=== PATIENT | female | born 1950 | race Caucasian/White ===

== ENCOUNTER 2016-12-07 16:46 | Emergency (ER) | payer MEDICARE, MEDICAID ==
[2016-12-07] MEDS ORDERED: ASPIRIN 81 MG TABLET, CHEWABLE PO ONE (18:19)
[2016-12-07] MEDS ORDERED: ONDANSETRON HCL INJ/PF 4 MG/2 ML SDV IV ONE (18:28)
--- NOTE | 2016-12-07 18:30 | ER Document Report ---
ED Medical Screen (RME) - General Chief Complaint: Chest Pain Stated Complaint: CHEST PAIN Time Seen by Provider: 12/07/16 18:19 Notes: 66-year-old female with a history of one stent approximately 2 years ago presents emergency department complaining of pressure on her chest for the past week that feels like an elephant sitting on her chest. Patient states this feels different than her prior heart attack, states it feels more like a shortness of breath. States he gets worse when she lays down and is associated with a cough productive of clear sputum. Admits to history of congestive heart failure and atrial fibrillation, takes digoxin and Lasix. Patient has had increasing swelling in her bilateral lower extremities over the past several days. Does not weigh herself regularly. Pathology Teacher is Dr. Beal At [facility] cardiology TRAVEL OUTSIDE OF THE [place] IN LAST 30 DAYS: No - Related Data Allergies/Adverse Reactions: Penicillins Allergy (Severe, Verified 08/04/15 11:07) Hives Home Medications: Current Home Medications Cetirizine HCl [All Day Allergy] 10 mg PO DAILY 12/07/16 [History] Insulin Detemir [Levemir] 10 unit SQ HSP PRN 12/07/16 [History] Sacubitril/Valsartan [Entresto 24 mg-26 mg Tablet] 1 each PO BID 12/07/16 [ History] Past Medical History - Social History Frequency of alcohol use: None Drug Abuse: None - Past Medical History Cardiac Medical History: Reports: Hx Atrial Fibrillation, Hx Congestive Heart Failure, Hx Coronary Artery Disease, Hx Heart Attack - OCT 2013, Hx Hypercholesterolemia, Hx Hypertension - ON MEDS Pulmonary Medical History: Denies: Hx Asthma, Hx Bronchitis, Hx COPD, Hx Pneumonia Neurological Medical History: Denies: Hx Cerebrovascular Accident, Hx Seizures Endocrine Medical History: Reports: Hx Diabetes Mellitus Type 2 Renal/ Medical History: Reports: Hx Kidney Stones. Denies: Hx Peritoneal Dialysis GI Medical History: Denies: Hx Hepatitis, Hx Hiatal Hernia, Hx Ulcer Musculoskeltal Medical History: Denies Hx Arthritis Infectious Medical History: Denies: Hx Hepatitis Past Surgical History: Reports: Hx Cardiac Catheterization, Hx Cardiac Surgery - stent placement, Hx Cholecystectomy, Hx Coronary Stent, Hx Hysterectomy, Hx Tubal Ligation. Denies: Hx Mastectomy, Hx Open Heart Surgery, Hx Pacemaker - Immunizations Immunizations up to date: Yes Hx Diphtheria, Pertussis, Tetanus Vaccination: Yes Physical Exam - Vital signs Vitals: Temp Pulse Resp BP Pulse Ox 97.9 F 63 18 129/62 H 95 12/07/16 17:02 12/07/16 17:02 12/07/16 17:02 12/07/16 17:02 12/07/16 17:02 Interpretation: Normal - Notes Notes: Obese Lungs, no respiratory distress, crackles in the bilateral lower lung woodward Extremities, 2+ pitting edema of the bilateral lower extremities Heart, heart is irregularly irregular. Course - Vital Signs Vital signs: Temp Pulse Resp BP Pulse Ox 97.9 F 63 20 129/62 H 95 12/07/16 17:02 12/07/16 17:02 12/07/16 18:18 12/07/16 17:02 12/07/16 17:02
--- NOTE | 2016-12-07 18:53 | RADIOLOGY REPORT (SQ) ---
EXAM DESCRIPTION: CHEST SINGLE VIEW COMPLETED DATE/TIME: 12/07/2016 6:38 pm REASON FOR STUDY: chest pain COMPARISON: 12/14/2015 EXAM PARAMETERS: NUMBER OF VIEWS: One view. TECHNIQUE: Single frontal radiographic view of the chest acquired. RADIATION DOSE: NA LIMITATIONS: None. FINDINGS: LUNGS AND PLEURA: No opacities, masses or pneumothorax. No pleural effusion. MEDIASTINUM AND HILAR STRUCTURES: No masses. Contour normal. HEART AND VASCULAR STRUCTURES: Heart normal in size. Normal vasculature. BONES: No acute findings. HARDWARE: None in the chest. OTHER: No other significant finding. IMPRESSION: NO ACUTE RADIOGRAPHIC FINDING IN THE CHEST. TECHNICAL DOCUMENTATION: JOB ID: [id number]
[2016-12-07 19:27] LABS: ABSOLUTE BASOPHILS # (AUTO) 0.1 10^3/uL (0.0-0.2); ABSOLUTE EOSINOPHILS # (AUTO) 0.2 10^3/uL (0.0-0.6); ABSOLUTE LYMPHOCYTES (AUTO) 3.2 10^3/uL (0.5-4.7); ABSOLUTE MONOCYTES (AUTO) 0.7 10^3/uL (0.1-1.4); BASOPHILS % (AUTO) 0.6 % (0-2); EOSINOPHILS % (AUTO) 1.3 % (0-6); HEMATOCRIT 41.1 % (36.0-47.0); HGB HCT DIFFERENCE 0.9; LYMPHOCYTES % (AUTO) 21.1 % (13-45); MEAN CORPUSCULAR HEMOGLOBIN 30.9 pg (27.0-33.4); MEAN CORPUSCULAR HGB CONC 34.1 g/dL (32.0-36.0); MEAN CORPUSCULAR VOLUME 91 fl (80-97); MONOCYTES % (AUTO) 4.5 % (3-13); RED BLOOD COUNT 4.53 10^6/uL (3.72-5.28); RED CELL DISTRIBUTION WIDTH 14.4 % (11.5-14.0); SEGMENTED NEUTROPHILS % (AUTO) 72.5 % (42-78); WHITE BLOOD COUNT 15.1 10^3/uL (4.0-10.5)
[2016-12-07 19:29] LABS: PROTHROMBIN TIME 14.9 SEC (11.4-15.4)
[2016-12-07 19:54] LABS: ALANINE AMINOTRANSFERASE 22 U/L (9-52); ALBUMIN 3.9 g/dL (3.5-5.0); ALKALINE PHOSPHATASE 89 U/L (38-126); ANION GAP 12 (5-19); ASPARTATE AMINO TRANSFERASE 19 U/L (14-36); BILIRUBIN,DIRECT 0.5 mg/dL (0.0-0.4); BILIRUBIN,TOTAL 0.8 mg/dL (0.2-1.3); BLOOD UREA NITROGEN 16 mg/dL (7-20); CALCIUM 9.4 mg/dL (8.4-10.2); CARBON DIOXIDE 29 mmol/L (22-30); CHLORIDE 98 mmol/L (98-107); CREATINE KINASE 28 U/L (30-135); CREATININE RESULT 0.73 mg/dL (0.52-1.25); DIGOXIN 1.16 ng/mL (0.8-2.0); GLUCOSE 317 mg/dL (75-110); LIPASE 148.2 U/L (23-300); POTASSIUM 4.5 mmol/L (3.6-5.0); SODIUM 138.5 mmol/L (137-145); TOTAL PROTEIN 7.5 g/dL (6.3-8.2)
[2016-12-07 20:04] LABS: CREATINE KINASE MB 0.55 ng/mL (<4.55)
[2016-12-07 20:06] LABS: TROPONIN I < 0.012 ng/mL
[2016-12-07] MEDS ORDERED: MAG HYDROX/AL HYDROX/SIMETH SUSP 30 ML UDCUP PO ONE (20:47)
[2016-12-07] MEDS ORDERED: METOCLOPRAMIDE HCL ORAL SOLN 10 MG/10 ML UDCUP PO ONE (20:47)
[2016-12-07] MEDS ORDERED: LIDOCAINE 2% VISCOUS SOLN 20 ML UDCUP PO ONE (20:47)
[2016-12-07] MEDS ORDERED: FAMOTIDINE 20 MG TABLET PO ONE (20:47)
--- NOTE | 2016-12-07 20:52 | ER Document Report ---
ED General - General Chief Complaint: Chest Pain Stated Complaint: CHEST PAIN Time Seen by Provider: 12/07/16 18:19 Notes: Patient is a 66-year-old female with a past medical history of hypertension and known coronary artery disease who presents with epigastric abdominal discomfort that she states intermittently feels like it may be going into her left chest. She denies any radiation of the pain into the arms, jaw or back. Does describe the pain as a pressure-like sensation that has been present for approximately 12 hours. Nothing improves or worsens the pain. She has not seen her primary care doctor regarding today's concerns. She denies any associated nausea, vomiting, diaphoresis or syncope. TRAVEL OUTSIDE OF THE [place] IN LAST 30 DAYS: No - Related Data Allergies/Adverse Reactions: Penicillins Allergy (Severe, Verified 12/07/16 18:45) Hives Home Medications: Current Home Medications Cetirizine HCl [All Day Allergy] 10 mg PO DAILY 12/07/16 [History] Insulin Detemir [Levemir] 10 unit SQ HSP PRN 12/07/16 [History] Sacubitril/Valsartan [Entresto 24 mg-26 mg Tablet] 1 each PO BID 12/07/16 [ History] Past Medical History - General Information source: Patient - Social History Smoking Status: Current Every Day Smoker Frequency of alcohol use: None Drug Abuse: None Lives with: Family Family History: Reviewed & Not Pertinent - Past Medical History Cardiac Medical History: Reports: Hx Atrial Fibrillation, Hx Congestive Heart Failure, Hx Coronary Artery Disease, Hx Heart Attack - OCT 2013, Hx Hypercholesterolemia, Hx Hypertension - ON MEDS Pulmonary Medical History: Denies: Hx Asthma, Hx Bronchitis, Hx COPD, Hx Pneumonia Neurological Medical History: Denies: Hx Cerebrovascular Accident, Hx Seizures Endocrine Medical History: Reports: Hx Diabetes Mellitus Type 2 Renal/ Medical History: Reports: Hx Kidney Stones. Denies: Hx Peritoneal Dialysis GI Medical History: Denies: Hx Hepatitis, Hx Hiatal Hernia, Hx Ulcer Musculoskeltal Medical History: Denies Hx Arthritis Infectious Medical History: Denies: Hx Hepatitis Past Surgical History: Reports: Hx Cardiac Catheterization, Hx Cardiac Surgery - stent placement, Hx Cholecystectomy, Hx Coronary Stent, Hx Hysterectomy, Hx Tubal Ligation. Denies: Hx Mastectomy, Hx Open Heart Surgery, Hx Pacemaker - Immunizations Immunizations up to date: Yes Hx Diphtheria, Pertussis, Tetanus Vaccination: Yes Review of Systems - Review of Systems Notes: Constitutional: Negative for fever. HENT: Negative for sore throat. Eyes: Negative for visual changes. Cardiovascular: Negative for chest pain. Respiratory: positive for shortness of breath. Gastrointestinal: Positive for epigastric abdominal pain and nausea Genitourinary: Negative for dysuria. Musculoskeletal: Negative for back pain. Skin: Negative for rash. Neurological: Negative for headaches, weakness or numbness. 10 point ROS negative except as marked above and in HPI. Physical Exam - Vital signs Vitals: Temp Pulse Resp BP Pulse Ox 97.9 F 63 18 129/62 H 95 12/07/16 17:02 12/07/16 17:02 12/07/16 17:02 12/07/16 17:02 12/07/16 17:02 Interpretation: Normal Notes: PHYSICAL EXAMINATION: GENERAL: Well-appearing, well-nourished and in no acute distress. HEAD: Atraumatic, normocephalic. EYES: Pupils equal round and reactive to light, extraocular movements intact, sclera anicteric, conjunctiva are normal. ENT: nares patent, oropharynx clear without exudates. Moist mucous membranes. NECK: Normal range of motion, supple without lymphadenopathy LUNGS: Breath sounds clear to auscultation bilaterally and equal. No wheezes rales or rhonchi. HEART: Regular rate and rhythm without murmurs ABDOMEN: Soft, mild epigastric abdominal tenderness on palpation otherwise no focal abdominal tenderness, normoactive bowel sounds. No guarding, no rebound. No masses appreciated. EXTREMITIES: Normal range of motion, no pitting or edema. No cyanosis. NEUROLOGICAL: No focal neurological deficits. Moves all extremities spontaneously and on command. PSYCH: Normal mood, normal affect. SKIN: Warm, Dry, normal turgor, no rashes or lesions noted. Course - Re-evaluation Re-evalutation: 12/07/16 20:51 Presentation of chest pain in an otherwise well appearing patient. Examination reveals the patient's pain is actually more towards the epigastrium than over the chest wall. Low clinical suspicion for ACS given clinical history, exam, EKG without ST elevations or depressions, and negative initial troponin. PE also seems unlikely given clinical history, absence of tachycardia or dyspnea. Wells score is 0. CXR without evidence of pneumothorax or pneumonia. No widened mediastinum. Aortic dissection also seems unlikely given history, symmetric pulses, CXR, and vitals. I do not suspect an acute pancreatitis his lipase is normal. Patient has a history of a remote cholecystectomy and I do not believe acute biliary pathology as the etiology for presentation today. Will obtain a second troponin and if this remains normal plan for discharge home with close outpatient follow-up and the recommendation for a stress test within the next 72 hours. Patient is agreeable to this plan. 12/07/16 22:54 Repeat troponin remains normal. Patient remains without chest pain. At this time will discharge with return precautions and follow-up recommendations. Verbal discharge instructions given a the bedside and opportunity for questions given. Medication warnings reviewed. Patient is in agreement with this plan and has verbalized understanding of return precautions and the need for primary care follow-up in the next 24-72 hours. - Vital Signs Vital signs: Temp Pulse Resp BP Pulse Ox 97.9 F 63 23 H 156/106 H 94 12/07/16 17:02 12/07/16 17:02 12/07/16 23:01 12/07/16 23:01 12/07/16 23:01 - Laboratory Result Diagrams: 12/07/16 18:19 12/07/16 18:40 Laboratory results interpreted by me: 12/07/16 12/07/16 12/07/16 18:19 18:40 18:40 WBC 15.1 H RDW 14.4 H Absolute Neutrophils 11.0 H Glucose 317 H Direct Bilirubin 0.5 H Creatine Kinase 28 L NT-Pro-B Natriuret Pep 3430 H - Diagnostic Test Radiology reviewed: Image reviewed, Reports reviewed Radiology results interpreted by me: 12/07/16 22:55 Chest x-ray: No acute infiltrate or pneumothorax - EKG Interpretation by Me Additional EKG results interpreted by me: 12/07/16 22:55 Atrial fibrillation. Variable rate between [address] elevations or depressions. QTC is 418. Unchanged from prior EKG. Discharge - Discharge Clinical Impression: Epigastric abdominal pain Chest pain Qualifiers: Chest pain type: unspecified Qualified Code(s): R07.9 - Chest pain, unspecified Condition: Stable Disposition: HOME, SELF-CARE Additional Instructions: You were seen today for chest pain. The exact cause of your pain is unclear. However, based on your cardiac enzyme testing, chest x-ray, and EKG it does not appear that it is from an immediately life-threatening cause at this time. Although your testing here is normal is critical that you follow-up with your primary care physician for continued evaluation of this chest pain and possible stress testing. I recommended you see your physician within the next 24-48 hours to be evaluated for consideration of a stress test. Please return to emergency department immediately if you have worsening of your chest pain, shortness of breath, vomiting, become unable to exert yourself due to pain or difficulty breathing, you pass out, or have any pain that radiates into your arms, jaw, or back. Please also return if you have any additional symptoms that are concerning to you. Referrals: KACI NINA MD [Primary Care Provider] - Follow up as needed
[2016-12-07 23:05] VITALS: BP 156/106
--- NOTE | 2016-12-08 00:14 | EKG REPORT ---
SEVERITY:- ABNORMAL ECG - ATRIAL FIBRILLATION, V-RATE 73-133 LOW VOLTAGE IN FRONTAL LEADS BORDERLINE T ABNORMALITIES, INFERIOR LEADS : Confirmed by: Ventura Sotomayor 08-Dec-2016 00:13:37
== END 2016-12-07 23:20 | disposition home or self-care (01) ==
LOC: ER 16:46
DX: R10.13 Epigastric pain (principal); R07.9 Chest pain, unspecified; I48.91 Unspecified atrial fibrillation; I10 Essential (primary) hypertension; I25.10 Atherosclerotic heart disease of native coronary artery without angina pectoris; F17.200 Nicotine dependence, unspecified, uncomplicated; I25.2 Old myocardial infarction; E11.9 Type 2 diabetes mellitus without complications; R06.02 Shortness of breath; Z88.0 Allergy status to penicillin; Z95.5 Presence of coronary angioplasty implant and graft
CPT/HCPCS: 93005; 99285; 36415; 82553; 82550; 80162; 83690; 85025; 85610; 80053; 84484; 83880; 71010; 93010; A9270 ×3; J3490

== ENCOUNTER 2017-07-18 10:35 | Inpatient (IN) | payer MEDICARE, MEDICAID ==
[2017-07-18] MEDS ORDERED: ASPIRIN 81 MG TABLET, CHEWABLE PO ONE (11:12)
[2017-07-18] MEDS ORDERED: ONDANSETRON 4 MG TAB.RAPDIS PO ONE (11:16)
--- NOTE | 2017-07-18 11:17 | ER Document Report ---
ED Medical Screen (RME) - General Chief Complaint: Epigastric Pain Stated Complaint: CHEST PAIN, STOMACH PAIN Time Seen by Provider: 07/18/17 11:11 Notes: 67-year-old female, past medical history CAD, A. fib on digoxin and Eliquis, presents with multiple complaints. She is having 6 days of worsening epigastric and lower chest pain, along with right flank and lower abdominal pain. PE: Epigastric tenderness, irregular rhythm I have greeted and performed a rapid initial assessment of this patient. A comprehensive ED assessment and evaluation of the patient, analysis of test results and completion of the medical decision making process will be conducted by additional ED providers. TRAVEL OUTSIDE OF THE [place] IN LAST 30 DAYS: No - Related Data Allergies/Adverse Reactions: Penicillins Allergy (Severe, Verified 12/07/16 18:45) Hives Past Medical History - Social History Chew tobacco use (# tins/day): No Frequency of alcohol use: None Drug Abuse: None - Past Medical History Cardiac Medical History: Reports: Hx Atrial Fibrillation, Hx Congestive Heart Failure, Hx Coronary Artery Disease, Hx Heart Attack - OCT 2013, Hx Hypercholesterolemia, Hx Hypertension - ON MEDS Pulmonary Medical History: Denies: Hx Asthma, Hx Bronchitis, Hx COPD, Hx Pneumonia Neurological Medical History: Denies: Hx Cerebrovascular Accident, Hx Seizures Endocrine Medical History: Reports: Hx Diabetes Mellitus Type 2 Renal/ Medical History: Reports: Hx Kidney Stones. Denies: Hx Peritoneal Dialysis GI Medical History: Denies: Hx Hepatitis, Hx Hiatal Hernia, Hx Ulcer Musculoskeltal Medical History: Denies Hx Arthritis Infectious Medical History: Denies: Hx Hepatitis Past Surgical History: Reports: Hx Cardiac Catheterization, Hx Cardiac Surgery - stent placement, Hx Cholecystectomy, Hx Coronary Stent, Hx Hysterectomy, Hx Tubal Ligation. Denies: Hx Mastectomy, Hx Open Heart Surgery, Hx Pacemaker - Immunizations Immunizations up to date: Yes Hx Diphtheria, Pertussis, Tetanus Vaccination: Yes Physical Exam - Vital signs Vitals: Temp Pulse Resp BP Pulse Ox 98.5 F 92 20 132/73 H 96 07/18/17 10:53 07/18/17 10:53 07/18/17 10:53 07/18/17 10:53 07/18/17 10:53 Course - Vital Signs Vital signs: Temp Pulse Resp BP Pulse Ox 98.5 F 92 20 132/73 H 96 07/18/17 10:53 07/18/17 10:53 07/18/17 10:53 07/18/17 10:53 07/18/17 10:53
--- NOTE | 2017-07-18 11:49 | RADIOLOGY REPORT (SQ) ---
EXAM DESCRIPTION: CHEST SINGLE VIEW COMPLETED DATE/TIME: 07/18/2017 11:40 am REASON FOR STUDY: chest pain COMPARISON: None. EXAM PARAMETERS: NUMBER OF VIEWS: One view. TECHNIQUE: Single frontal radiographic view of the chest acquired. RADIATION DOSE: NA LIMITATIONS: None. FINDINGS: LUNGS AND PLEURA: No opacities, masses or pneumothorax. No pleural effusion. MEDIASTINUM AND HILAR STRUCTURES: No masses. Contour normal. HEART AND VASCULAR STRUCTURES: Heart normal in size. Normal vasculature. BONES: No acute findings. HARDWARE: None in the chest. OTHER: No other significant finding. IMPRESSION: NO ACUTE RADIOGRAPHIC FINDING IN THE CHEST. TECHNICAL DOCUMENTATION: JOB ID: [id number] [employer]- All Rights Reserved Reading location - IP/workstation name: [email or web address]
[2017-07-18 11:54] LABS: APPEARANCE,URINE CLOUDY; BILIRUBIN,URINE NEGATIVE (NEGATIVE); GLUCOSE, URINE >=500 mg/dL (NEGATIVE); KETONES,URINE NEGATIVE (NEGATIVE); LEUKOCYTE ESTERASE,URINE NEGATIVE (NEGATIVE); NITRITE,URINE NEGATIVE (NEGATIVE); PROTEIN,URINE >=500 mg/dL (NEGATIVE); URINE SPECIFIC GRAVITY 1.027
[2017-07-18 11:59] LABS: COLOR,URINE YELLOW
[2017-07-18 12:24] LABS: ABSOLUTE BASOPHILS # (AUTO) 0.1 10^3/uL (0.0-0.2); ABSOLUTE EOSINOPHILS # (AUTO) 0.2 10^3/uL (0.0-0.6); ABSOLUTE LYMPHOCYTES (AUTO) 2.7 10^3/uL (0.5-4.7); ABSOLUTE MONOCYTES (AUTO) 0.7 10^3/uL (0.1-1.4); ABSOLUTE NEUT (AUTO) 11.7 10^3/uL (1.7-8.2); BASOPHILS % (AUTO) 0.6 % (0-2); EOSINOPHILS % (AUTO) 1.2 % (0-6); HEMATOCRIT 42.4 % (36.0-47.0); HEMOGLOBIN 14.2 g/dL (12.0-15.5); LYMPHOCYTES % (AUTO) 17.5 % (13-45); MEAN CORPUSCULAR HEMOGLOBIN 30.4 pg (27.0-33.4); MEAN CORPUSCULAR HGB CONC 33.6 g/dL (32.0-36.0); MEAN CORPUSCULAR VOLUME 91 fl (80-97); MONOCYTES % (AUTO) 4.6 % (3-13); PLATELET COUNT 217 10^3/uL (150-450); RED BLOOD COUNT 4.69 10^6/uL (3.72-5.28); SEGMENTED NEUTROPHILS % (AUTO) 76.1 % (42-78); TOTAL CELLS COUNTED % (AUTO) 100 %; WHITE BLOOD COUNT 15.4 10^3/uL (4.0-10.5)
[2017-07-18 12:45] LABS: ALANINE AMINOTRANSFERASE 22 U/L (9-52); ALBUMIN 3.7 g/dL (3.5-5.0); ALKALINE PHOSPHATASE 88 U/L (38-126); ANION GAP 11 (5-19); ASPARTATE AMINO TRANSFERASE 15 U/L (14-36); BILIRUBIN,DIRECT 0.4 mg/dL (0.0-0.4); BILIRUBIN,TOTAL 0.7 mg/dL (0.2-1.3); BLOOD UREA NITROGEN 23 mg/dL (7-20); CALCIUM 9.7 mg/dL (8.4-10.2); CARBON DIOXIDE 32 mmol/L (22-30); CHLORIDE 100 mmol/L (98-107); CREATINE KINASE 41 U/L (30-135); DIGOXIN 0.69 ng/mL (0.8-2.0); GLUCOSE 312 mg/dL (75-110); LIPASE 1313.6 U/L (23-300); POTASSIUM 4.4 mmol/L (3.6-5.0); SODIUM 142.5 mmol/L (137-145); TOTAL PROTEIN 7.1 g/dL (6.3-8.2)
[2017-07-18] MEDS: NORMAL SALINE 1000 ML 1,000 ML IV PRN ×5 (13:02→17:56)
--- NOTE | 2017-07-18 13:26 | ER Document Report ---
ED General - General Chief Complaint: Epigastric Pain Stated Complaint: CHEST PAIN, STOMACH PAIN Time Seen by Provider: 07/18/17 11:11 Mode of Arrival: Ambulatory Information source: Patient Notes: 67-year-old female presents with complaints of epigastric abdominal pain associated with nausea vomiting pain to her flank. Patient has a history of diabetes that is poorly controlled. Patient notes she was just started on new anti-hyperglycemic medication TRAVEL OUTSIDE OF THE [place] IN LAST 30 DAYS: No - Related Data Allergies/Adverse Reactions: Penicillins Allergy (Severe, Verified 12/07/16 18:45) Hives Past Medical History - Social History Smoking Status: Current Every Day Smoker Chew tobacco use (# tins/day): No Frequency of alcohol use: None Drug Abuse: None Family History: Reviewed & Not Pertinent Patient has suicidal ideation: No Patient has homicidal ideation: No - Past Medical History Cardiac Medical History: Reports: Hx Atrial Fibrillation, Hx Congestive Heart Failure, Hx Coronary Artery Disease, Hx Heart Attack - OCT 2013, Hx Hypercholesterolemia, Hx Hypertension - ON MEDS Pulmonary Medical History: Denies: Hx Asthma, Hx Bronchitis, Hx COPD, Hx Pneumonia Neurological Medical History: Denies: Hx Cerebrovascular Accident, Hx Seizures Endocrine Medical History: Reports: Hx Diabetes Mellitus Type 2 Renal/ Medical History: Reports: Hx Kidney Stones. Denies: Hx Peritoneal Dialysis GI Medical History: Denies: Hx Hepatitis, Hx Hiatal Hernia, Hx Ulcer Musculoskeltal Medical History: Denies Hx Arthritis Infectious Medical History: Denies: Hx Hepatitis Past Surgical History: Reports: Hx Cardiac Catheterization, Hx Cardiac Surgery - stent placement, Hx Cholecystectomy, Hx Coronary Stent, Hx Hysterectomy, Hx Tubal Ligation. Denies: Hx Mastectomy, Hx Open Heart Surgery, Hx Pacemaker - Immunizations Immunizations up to date: Yes Hx Diphtheria, Pertussis, Tetanus Vaccination: Yes Physical Exam - Vital signs Vitals: Temp Pulse Resp BP Pulse Ox 98.5 F 92 20 132/73 H 96 07/18/17 10:53 07/18/17 10:53 07/18/17 10:53 07/18/17 10:53 07/18/17 10:53 Course - Re-evaluation Re-evalutation: 07/18/17 14:47 Patient's lab work and imaging is most consistent with acute pancreatitis, patient was given IV fluids, patient denies a history of alcohol abuse, gallbladder did not appear to be the source of the patient's presentation. Therefore I do believe the patient would benefit from IV fluids and admission - Vital Signs Vital signs: Temp Pulse Resp BP Pulse Ox 98.5 F 92 20 132/73 H 96 07/18/17 10:53 07/18/17 10:53 07/18/17 10:53 07/18/17 10:53 07/18/17 10:53 - Laboratory Result Diagrams: 07/18/17 11:58 07/18/17 11:58 Laboratory results interpreted by me: 07/18/17 07/18/17 07/18/17 11:18 11:58 11:58 WBC 15.4 H RDW 15.0 H Absolute Neutrophils 11.7 H Carbon Dioxide 32 H BUN 23 H Glucose 312 H Lipase 1313.6 H Urine Protein >=500 H Urine Glucose (UA) >=500 H Urine Blood MODERATE H Urine Urobilinogen 2.0 H Digoxin 0.69 L - Diagnostic Test Radiology reviewed: Image reviewed - CT abdomen pelvis note irritation around the pancreatic head, Reports reviewed Discharge - Discharge Clinical Impression: Diabetes mellitus type 1 Qualifiers: Diabetes mellitus complication status: with unspecified complications Qualified Code(s): E10.8 - Type 1 diabetes mellitus with unspecified complications Pancreatitis Qualifiers: Chronicity: acute Pancreatitis type: other Acute pancreatitis complication: unspecified Qualified Code(s): K85.80 - Other acute pancreatitis without necrosis or infection Condition: Stable Disposition: ADMITTED INPATIENT Admitting Provider: Hospitalist Unit Admitted: Telemetry Referrals: KACI NINA MD [Primary Care Provider] - Follow up as needed
--- NOTE | 2017-07-18 13:29 | EKG REPORT ---
SEVERITY:- ABNORMAL ECG - ATRIAL FIBRILLATION, V-RATE 70-105 NONSPECIFIC T ABNORMALITIES, DIFFUSE LEADS : Confirmed by: Samuel Fox MD 18-Jul-2017 13:29:02
--- NOTE | 2017-07-18 14:28 | RADIOLOGY REPORT (SQ) ---
EXAM DESCRIPTION: CT ABD/PELVIS WITH IV ONLY COMPLETED DATE/TIME: 07/18/2017 2:12 pm REASON FOR STUDY: epigastric, generalized abd pain COMPARISON: 05/23/2015 TECHNIQUE: CT scan of the abdomen and pelvis performed using helical scanning technique with dynamic intravenous contrast injection. No oral contrast. Images reviewed with lung, soft tissue, and bone windows. Reconstructed coronal and sagittal MPR images reviewed. Delayed images for evaluation of the urinary system also acquired. All images stored on PACS. All CT scanners at this facility use dose modulation, iterative reconstruction, and/or weight based d osing when appropriate to reduce radiation dose to as low as reasonably achievable (ALARA). [facility]: Dose Right [facility]: CareDose [facility]: Dose Right [facility]: Teradose 4D [facility]: Perfect Escapes CONTRAST TYPE AND DOSE: contrast/concentration: Isovue 370.00 mg/ml; Total Contrast Delivered: 93.0 ml; Total Saline Delivered: 71.0 ml RENAL FUNCTION: BUN 23 creatinine 0.9 RADIATION DOSE: CT Rad equipment meets quality standard of care and radiation dose reduction techniq ues were employed. CTDIvol: 13.3 - 17.5 mGy. DLP: 1652 mGy-cm.. LIMITATIONS: None. FINDINGS: LOWER CHEST: No acute findings. LIVER: Fatty change. Sub capsular nodularity. Normal size. No masses. No dilated ducts. SPLEEN: Normal size. No focal lesions. PANCREAS: There is subtle stranding of the peripancreatic fat. No evidence of pancreatic mass or pse udocyst. GALLBLADDER: Surgically absent. ADRENAL GLANDS: No significant masses or asymmetry. RIGHT KIDNEY AND URETER: No solid masses. 8 mm stone lower pole. No hydronephrosis or hydroureter . LEFT KIDNEY AND URETER: Stable cysts. No solid masses. No significant calcifications. No hydrone phrosis or hydroureter. AORTA AND VESSELS: No aneurysm. RETROPERITONEUM: No retroperitoneal adenopathy, hemorrhage or masses. BOWEL AND PERITONEAL CAVITY: No masses or inflammatory changes. No free fluid or peritoneal masses. APPENDIX: Normal. PELVIS: No mass. No free fluid. Normal bladder. ABDOMINAL WALL: No masses. No hernias. BONES: No significant or acute findings. OTHER: No other significant finding. IMPRESSION: 1. Subtle inflammatory changes surrounding the pancreatic head possibly due to pancreatitis. Correla tion with serum chemistries is recommended. 2. Nonobstructing stone right kidney. TECHNICAL DOCUMENTATION: JOB ID: [id number] Quality ID # [id number]: Final reports with documentation of one or more dose reduction techniques (e.g., Au tomated exposure control, adjustment of the mA and/or kV according to patient size, use of iterative reconstruction technique) 2010 [employer]- All Rights Reserved Reading location - IP/workstation name: [email or web address] [id number]
[2017-07-18] MEDS ORDERED: DEXTROSE 40% GEL 15 GM TUBE PO PRN ×2 (15:17)
[2017-07-18] MEDS ORDERED: DEXTROSE 50%-WATER 25 GM/50 ML DISP.SYRIN IV PRN ×2 (15:17)
[2017-07-18] MEDS ORDERED: GLUCAGON,HUMAN RECOMB 1 MG INJ IM PRN (15:17)
[2017-07-18] MEDS ORDERED: ONDANSETRON HCL INJ/PF 4 MG/2 ML SDV IV PRN (15:24)
[2017-07-18] MEDS ORDERED: METOPROLOL TARTRATE PF/INJ 5 MG/5 ML SDV IV ONE (16:00)
--- NOTE | 2017-07-18 16:37 | PDOC H&P ---
History of Present Illness Admission Date/PCP: 07/18/17 15:10 KACI NINA MD Patient complains of: Abdominal pain. History of Present Illness: CHRISTINA VIVEROS is a 67 year old female with diabetes that has been poorly controlled. She recently came across some orange [employer] and ate them until she became sick. Pain has not resolved, it is on her left flank, and has been associated with nausea and vomiting. She denies any fevers or chills. Denies diarrhea. Denies alcohol use. She smokes every day. She denies any weight loss or night sweats. Past Medical History Cardiac Medical History: Reports: Atrial Fibrillation, Congestive Heart Failure , Coronary Artery Disease, Myocardial Infarction - OCT 2013, Hyperlipidema, Hypertension - ON MEDS, Other - Cardiomyopathy with an ejection fraction of about 25% by echo in 2016 Pulmonary Medical History: Denies: Asthma, Bronchitis, Chronic Obstructive Pulmonary Disease (COPD), Pneumonia Neurological Medical History: Denies: Seizures Endocrine Medical History: Reports: Diabetes Mellitus Type 2 GI Medical History: Denies: Hepatitis, Hiatal Hernia Musculoskeltal Medical History: Denies: Arthritis Hematology: Denies: Anemia, Sickle Cell Disease Past Surgical History Past Surgical History: Reports: Cardiac Catheterization, Cholecystectomy, Coronary Stent, Hysterectomy, Tubal Ligation Denies: Amputation, Mastectomy, Pacemaker Social History Information Source: Patient, [facility] Records Smoking Status: Current Every Day Smoker Frequency of Alcohol Use: None Hx Recreational Drug Use: No Drugs: None Hx Prescription Drug Abuse: No - Advance Directive Resuscitation Status: Full Code Family History Family History: Reviewed & Not Pertinent, CAD - Both parents of complications of coronary artery disease with CHF Parental Family History Reviewed: Yes Children Family History Reviewed: Yes Sibling(s) Family History Reviewed.: Yes Medication/Allergy Home Medications: Digoxin [Lanoxin 0.25 mg Tablet] 0.25 mg PO DAILY 07/07/11 Aspirin [Aspirin EC] 81 mg PO DAILY 01/20/15 Nitroglycerin [Nitrostat 0.4 mg (1/150 Gr) Tabs 25/Bottle] 1 tab SL Q5MP PRN 02/22 Apixaban [Eliquis 5 mg Tablet] 5 mg PO BID 03/22/15 Furosemide [Lasix 40 mg Tablet] 40 mg PO QAM #30 tablet 12/15/15 Sacubitril/Valsartan [Entresto 24 mg-26 mg Tablet] 1 each PO BID 12/07/16 Metoprolol Succinate [Toprol XL 100 mg Tablet] 100 mg PO DAILY 07/18/17 Potassium Chloride 20 meq PO DAILY MDD take with lasix 07/18/17 Allergies/Adverse Reactions: Penicillins Allergy (Severe, Verified 12/07/16 18:45) Hives Review of Systems All systems: reviewed and no additional remarkable complaints except as stated Physical Exam Vital Signs: Temp Pulse Resp BP Pulse Ox 98.5 F 92 18 137/77 H 97 07/18/17 10:53 07/18/17 10:53 07/18/17 15:01 07/18/17 15:01 07/18/17 15:01 General appearance: PRESENT: no acute distress, obese Respiratory exam: PRESENT: clear to auscultation candice Cardiovascular exam: PRESENT: RRR GI/Abdominal exam: PRESENT: soft, tenderness - Very umbilical Neurological exam: PRESENT: alert Psychiatric exam: PRESENT: appropriate affect Skin exam: PRESENT: warm Results Impressions: Chest X-Ray 07/18/17 11:12 IMPRESSION: NO ACUTE RADIOGRAPHIC FINDING IN THE CHEST. Abdomen/Pelvis CT 07/18/17 12:40 IMPRESSION: 1. Subtle inflammatory changes surrounding the pancreatic head possibly due to pancreatitis. Correlation with serum chemistries is recommended. 2. Nonobstructing stone right kidney. Assessment & Plan - Diagnosis (1) Pancreatitis Qualifiers: Chronicity: acute Pancreatitis type: other Acute pancreatitis complication: unspecified Qualified Code(s): K85.80 - Other acute pancreatitis without necrosis or infection Is this a current diagnosis for this admission?: Yes Plan: CT scan is not very dramatic. I will keep her n.p.o., keep her hydrated, covered her medications as I can over to IV. Provide pain medication and supportive care. 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
[2017-07-18] MEDS: HYDROMORPHONE HCL INJ/PF 2 MG/ML AMPULE IV PRN ×2 (17:00→22:46)
[2017-07-18] MEDS: INSULIN LISPRO 100 UNIT/ML 3 ML VIAL SUBCUT PRN (17:57)
[2017-07-18] MEDS: ENALAPRILAT DIHYDRATE INJ/PF 1.25 MG/1 ML SDV IV SCH (18:42)
[2017-07-18] MEDS: ENOXAPARIN SODIUM INJ 100 MG/1 ML DISP.SYRIN SUBCUT SCH (22:45)
[2017-07-18] MEDS: FAMOTIDINE INJ/PF 20 MG/2 ML SDV IV SCH (22:46)
[2017-07-19] MEDS: METOPROLOL TARTRATE PF/INJ 5 MG/5 ML SDV IV SCH ×5 (00:21→21:50)
[2017-07-19] MEDS: ENALAPRILAT DIHYDRATE INJ/PF 1.25 MG/1 ML SDV IV SCH ×2 (00:30→06:00)
[2017-07-19] MEDS: HYDROMORPHONE HCL INJ/PF 2 MG/ML AMPULE IV PRN ×2 (06:04→16:21)
[2017-07-19 06:24] LABS: APPEARANCE,URINE SLIGHTLY-CLOUDY; BILIRUBIN,URINE NEGATIVE (NEGATIVE); COLOR,URINE YELLOW; GLUCOSE, URINE 50 mg/dL (NEGATIVE); KETONES,URINE NEGATIVE (NEGATIVE); LEUKOCYTE ESTERASE,URINE NEGATIVE (NEGATIVE); NITRITE,URINE NEGATIVE (NEGATIVE); PROTEIN,URINE 100 mg/dL (NEGATIVE); URINE SPECIFIC GRAVITY 1.039
[2017-07-19 06:57] LABS: HEMATOCRIT 36.6 % (36.0-47.0); MEAN CORPUSCULAR HEMOGLOBIN 30.4 pg (27.0-33.4); MEAN CORPUSCULAR HGB CONC 33.2 g/dL (32.0-36.0); MEAN CORPUSCULAR VOLUME 92 fl (80-97); PLATELET COUNT 172 10^3/uL (150-450); RED BLOOD COUNT 3.98 10^6/uL (3.72-5.28)
[2017-07-19 07:05] LABS: HEMOGLOBIN 12.1 g/dL (12.0-15.5)
[2017-07-19 07:16] LABS: ALANINE AMINOTRANSFERASE 25 U/L (9-52); ALBUMIN 2.8 g/dL (3.5-5.0); ALKALINE PHOSPHATASE 67 U/L (38-126); ANION GAP 7 (5-19); ASPARTATE AMINO TRANSFERASE 13 U/L (14-36); BILIRUBIN,DIRECT 0.3 mg/dL (0.0-0.4); BILIRUBIN,TOTAL 0.3 mg/dL (0.2-1.3); BLOOD UREA NITROGEN 15 mg/dL (7-20); CARBON DIOXIDE 27 mmol/L (22-30); CHLORIDE 110 mmol/L (98-107); GLUCOSE 122 mg/dL (75-110); PHOSPHORUS 3.4 mg/dL (2.5-4.5); POTASSIUM 3.8 mmol/L (3.6-5.0); SODIUM 143.7 mmol/L (137-145); TOTAL PROTEIN 5.7 g/dL (6.3-8.2)
[2017-07-19] MEDS: ENOXAPARIN SODIUM INJ 100 MG/1 ML DISP.SYRIN SUBCUT SCH ×2 (10:01→21:50)
[2017-07-19] MEDS: FAMOTIDINE INJ/PF 20 MG/2 ML SDV IV SCH ×2 (10:02→21:50)
[2017-07-19] MEDS: DIGOXIN INJ 0.5 MG/2 ML AMPULE IV SCH (10:07)
[2017-07-19] MEDS: NORMAL SALINE 1000 ML 1,000 ML IV PRN ×2 (10:12→18:20)
--- NOTE | 2017-07-19 12:40 | PDOC PROGRESS REPORT ---
Subjective Progress Note for:: 07/19/17 Subjective:: Pain improved from yesterday though still present. Denies nausea and vomiting Reason For Visit: PANCREATITIS,DM II,AFIB Physical Exam Vital Signs: Temp Pulse Resp BP Pulse Ox 98.8 F 81 16 127/68 H 96 07/19/17 11:58 07/19/17 11:58 07/19/17 11:58 07/19/17 11:58 07/19/17 11:58 Intake & Output 07/18/17 07/19/17 07/20/17 05:59 05:59 05:59 Intake Total 1685 Output Total 400 300 Balance 1285 -300 Weight 194 lb 3.636 oz General appearance: PRESENT: no acute distress, obese Respiratory exam: PRESENT: clear to auscultation candice Cardiovascular exam: PRESENT: RRR GI/Abdominal exam: PRESENT: soft, tenderness - Mild mid abdomen Neurological exam: PRESENT: alert Psychiatric exam: PRESENT: appropriate affect Skin exam: PRESENT: warm Results Laboratory Results: 07/19/17 05:15 07/19/17 05:15 07/19/17 07/19/17 07/19/17 05:15 05:15 06:05 WBC 14.0 H RBC 3.98 Hgb 12.1 D Hct 36.6 MCV 92 MCH 30.4 MCHC 33.2 RDW 15.0 H Plt Count 172 Sodium 143.7 Potassium 3.8 Chloride 110 H Carbon Dioxide 27 Anion Gap 7 BUN 15 Creatinine 0.77 Est GFR ( Amer) > 60 Est GFR (Non-Af Amer) > 60 Glucose 122 H Calcium 8.0 L Phosphorus 3.4 Magnesium 1.7 Total Bilirubin 0.3 AST 13 L ALT 25 Alkaline Phosphatase 67 Total Protein 5.7 L Albumin 2.8 L Lipase 702.0 H Urine Color YELLOW Urine Appearance SLIGHTLY-CLOUDY Urine pH 5.0 Ur Specific [place] 1.039 Urine Protein 100 H Urine Glucose (UA) 50 H Urine Ketones NEGATIVE Urine Blood SMALL H Urine Nitrite NEGATIVE Ur Leukocyte Esterase NEGATIVE Urine WBC (Auto) 2 Urine RBC (Auto) 2 07/18/17 15:55 Troponin I < 0.012 Impressions: Chest X-Ray 07/18/17 11:12 IMPRESSION: NO ACUTE RADIOGRAPHIC FINDING IN THE CHEST. Abdomen/Pelvis CT 07/18/17 12:40 IMPRESSION: 1. Subtle inflammatory changes surrounding the pancreatic head possibly due to pancreatitis. Correlation with serum chemistries is recommended. 2. Nonobstructing stone right kidney. Assessment & Plan - Diagnosis (1) Pancreatitis Qualifiers: Chronicity: acute Pancreatitis type: other Acute pancreatitis complication: unspecified Qualified Code(s): K85.80 - Other acute pancreatitis without necrosis or infection Is this a current diagnosis for this admission?: Yes Plan: CT scan is not very dramatic. I will keep her n.p.o., keep her hydrated, covered her medications as I can over to IV. Provide pain medication and supportive care. (2) DM hyperosmolarity type II, uncontrolled Qualifiers: Diabetes mellitus chcf insulin use: without keno terminal operator use Diabetes mellitus complication detail: without coma Qualified Code(s): E11.00 - Type 2 diabetes mellitus with hyperosmolarity without nonketotic hyperglycemic- hyperosmolar coma ([facility]) Is this a current diagnosis for this admission?: Yes Plan: Hemoglobin A1c 11.9. Well-controlled on sliding scale. Continue. (3) [facility] current use of anticoagulant therapy Is this a current diagnosis for this admission?: Yes Plan: Continue therapeutic dose Lovenox (4) Chronic a-fib Is this a current diagnosis for this admission?: Yes Plan: I will hold her Vasotec so we can give her Lopressor (5) Cardiomyopathy Qualifiers: Cardiomyopathy type: ischemic Qualified Code(s): I25.5 - Ischemic cardiomyopathy Is this a current diagnosis for this admission?: Yes Plan: LVEF roughly 25%. Vasotec IV
[2017-07-20] MEDS: HYDROMORPHONE HCL INJ/PF 2 MG/ML AMPULE IV PRN (00:34)
[2017-07-20] MEDS: NORMAL SALINE 1000 ML 1,000 ML IV PRN (03:15)
[2017-07-20] MEDS: METOPROLOL TARTRATE PF/INJ 5 MG/5 ML SDV IV SCH ×2 (03:28→08:44)
[2017-07-20 05:14] LABS: ABSOLUTE BASOPHILS # (AUTO) 0.1 10^3/uL (0.0-0.2); ABSOLUTE EOSINOPHILS # (AUTO) 0.2 10^3/uL (0.0-0.6); ABSOLUTE LYMPHOCYTES (AUTO) 2.3 10^3/uL (0.5-4.7); ABSOLUTE MONOCYTES (AUTO) 0.6 10^3/uL (0.1-1.4); ABSOLUTE NEUT (AUTO) 8.2 10^3/uL (1.7-8.2); EOSINOPHILS % (AUTO) 1.3 % (0-6); HEMATOCRIT 35.6 % (36.0-47.0); HEMOGLOBIN 11.8 g/dL (12.0-15.5); LYMPHOCYTES % (AUTO) 20.6 % (13-45); MEAN CORPUSCULAR HEMOGLOBIN 30.5 pg (27.0-33.4); MEAN CORPUSCULAR HGB CONC 33.1 g/dL (32.0-36.0); MEAN CORPUSCULAR VOLUME 92 fl (80-97); MONOCYTES % (AUTO) 5.2 % (3-13); PLATELET COUNT 151 10^3/uL (150-450); RED BLOOD COUNT 3.86 10^6/uL (3.72-5.28); RED CELL DISTRIBUTION WIDTH 14.5 % (11.5-14.0); SEGMENTED NEUTROPHILS % (AUTO) 71.9 % (42-78); TOTAL CELLS COUNTED % (AUTO) 100 %; WHITE BLOOD COUNT 11.4 10^3/uL (4.0-10.5)
[2017-07-20 05:42] LABS: ALBUMIN 2.7 g/dL (3.5-5.0); ANION GAP 8 (5-19); BLOOD UREA NITROGEN 13 mg/dL (7-20); CARBON DIOXIDE 24 mmol/L (22-30); CHLORIDE 113 mmol/L (98-107); GLUCOSE 99 mg/dL (75-110); IRON 37.8 ug/dL (37-170); LIPASE 275.9 U/L (23-300); SODIUM 144.7 mmol/L (137-145)
[2017-07-20] MEDS ORDERED: FUROSEMIDE INJ/PF 40 MG/4 ML SDV IV ONE (09:00)
[2017-07-20] MEDS ORDERED: ACETAMINOPHEN 325 MG TABLET ONE (09:15)
[2017-07-20] MEDS: FAMOTIDINE INJ/PF 20 MG/2 ML SDV IV SCH (09:53)
[2017-07-20] MEDS: ENOXAPARIN SODIUM INJ 100 MG/1 ML DISP.SYRIN SUBCUT SCH (09:53)
[2017-07-20] MEDS: DIGOXIN INJ 0.5 MG/2 ML AMPULE IV SCH (09:54)
--- NOTE | 2017-07-20 12:05 | PDOC PROGRESS REPORT ---
Subjective Progress Note for:: 07/20/17 Subjective:: Abdominal pain is mostly resolved. Denies nausea and vomiting. She would like to try something to eat Reason For Visit: PANCREATITIS,DM II,AFIB Physical Exam Vital Signs: Temp Pulse Resp BP Pulse Ox 98.3 F 85 18 135/68 H 96 07/20/17 07:00 07/20/17 07:00 07/20/17 07:00 07/20/17 07:00 07/20/17 07:00 Intake & Output 07/19/17 07/20/17 07/21/17 05:59 05:59 05:59 Intake Total 1685 1542 1472 Output Total 400 1130 Balance 6686 429 6427 Weight 194 lb 3.636 oz 199 lb 4.766 oz General appearance: PRESENT: no acute distress Respiratory exam: PRESENT: clear to auscultation candice Cardiovascular exam: PRESENT: RRR GI/Abdominal exam: PRESENT: soft Extremities exam: PRESENT: +1 edema - preTibial Neurological exam: PRESENT: alert Psychiatric exam: PRESENT: appropriate affect Skin exam: PRESENT: warm Results Laboratory Results: 07/20/17 04:15 07/20/17 04:15 07/20/17 07/20/17 07/20/17 04:15 04:15 04:15 WBC 11.4 H RBC 3.86 Hgb 11.8 L Hct 35.6 L MCV 92 MCH 30.5 MCHC 33.1 RDW 14.5 H Plt Count 151 Seg Neutrophils % 71.9 Lymphocytes % 20.6 Monocytes % 5.2 Eosinophils % 1.3 Basophils % 1.0 Absolute Neutrophils 8.2 Absolute Lymphocytes 2.3 Absolute Monocytes 0.6 Absolute Eosinophils 0.2 Absolute Basophils 0.1 Sodium 144.7 Potassium 4.0 Chloride 113 H Carbon Dioxide 24 Anion Gap 8 BUN 13 Creatinine 0.77 Est GFR ( Amer) > 60 Est GFR (Non-Af Amer) > 60 Glucose 99 Calcium 8.0 L Phosphorus 3.0 Magnesium 1.8 Iron 37.8 Albumin 2.7 L Lipase 275.9 TSH 0.70 07/18/17 07/20/17 15:55 04:15 Troponin I < 0.012 NT-Pro-B Natriuret Pep 4400 H Impressions: Chest X-Ray 07/18/17 11:12 IMPRESSION: NO ACUTE RADIOGRAPHIC FINDING IN THE CHEST. Abdomen/Pelvis CT 07/18/17 12:40 IMPRESSION: 1. Subtle inflammatory changes surrounding the pancreatic head possibly due to pancreatitis. Correlation with serum chemistries is recommended. 2. Nonobstructing stone right kidney. Assessment & Plan - Diagnosis (1) Pancreatitis Qualifiers: Chronicity: acute Pancreatitis type: other Acute pancreatitis complication: unspecified Qualified Code(s): K85.80 - Other acute pancreatitis without necrosis or infection Is this a current diagnosis for this admission?: Yes Plan: Start advancing her diet, restart her home meds (2) DM hyperosmolarity type II, uncontrolled Qualifiers: Diabetes mellitus skilled nursing insulin use: without skilled nursing use Diabetes mellitus complication detail: without coma Qualified Code(s): E11.00 - Type 2 diabetes mellitus with hyperosmolarity without nonketotic hyperglycemic- hyperosmolar coma ([facility]) Is this a current diagnosis for this admission?: Yes Plan: Continue her sliding scale. I note that she does not have any diabetic medications listed on her home meds, though she states she was just started on Amaryl. She does not know the dose. I will start her on 4 mg daily and monitor. 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 Resume home meds
[2017-07-20] MEDS: INSULIN LISPRO 100 UNIT/ML 3 ML VIAL SUBCUT PRN ×2 (12:08→17:41)
[2017-07-20] MEDS ORDERED: GLIMEPIRIDE 4 MG TABLET PO ONE (13:00)
[2017-07-20] MEDS: APIXABAN 5 MG TABLET PO SCH (17:38)
[2017-07-20] MEDS: SACUBITRIL/VALSARTAN 24 MG/26 MG TABLET PO SCH (17:38)
[2017-07-21] MEDS: ACETAMINOPHEN 325 MG TABLET PO PRN ×2 (03:38→21:46)
[2017-07-21] MEDS: SACUBITRIL/VALSARTAN 24 MG/26 MG TABLET PO SCH ×2 (06:31→17:49)
[2017-07-21] MEDS: FUROSEMIDE 40 MG TABLET PO SCH (07:25)
[2017-07-21] MEDS: ASPIRIN 81 MG TABLET, ENT COATED PO SCH (09:03)
[2017-07-21] MEDS: GLIMEPIRIDE 4 MG TABLET PO SCH (09:03)
[2017-07-21] MEDS: POTASSIUM CHLORIDE 10 MEQ TABLET.SA PO SCH (09:03)
[2017-07-21] MEDS: DIGOXIN 0.25 MG TABLET PO SCH (09:03)
[2017-07-21] MEDS: METOPROLOL SUCCINATE 50 MG TAB.SR.24H PO SCH (09:04)
[2017-07-21] MEDS: APIXABAN 5 MG TABLET PO SCH ×2 (09:06→17:49)
--- NOTE | 2017-07-21 13:27 | PDOC PROGRESS REPORT ---
Subjective Progress Note for:: 07/21/17 Subjective:: Still having a little left-sided abdominal pain when she eats. Reason For Visit: PANCREATITIS,DM II,AFIB Physical Exam Vital Signs: Temp Pulse Resp BP Pulse Ox 98.1 F 81 18 141/71 H 97 07/21/17 11:52 07/21/17 11:52 07/21/17 11:52 07/21/17 11:52 07/21/17 11:52 Intake & Output 07/20/17 07/21/17 07/22/17 05:59 05:59 05:59 Intake Total 1542 2985 466 Output Total 1130 700 Balance 412 2285 466 Weight 199 lb 4.766 oz 208 lb 12.444 oz General appearance: PRESENT: no acute distress Respiratory exam: PRESENT: clear to auscultation candice Cardiovascular exam: PRESENT: RRR GI/Abdominal exam: PRESENT: soft, tenderness - Mild left mid Extremities exam: ABSENT: +1 edema Musculoskeletal exam: PRESENT: normal inspection Neurological exam: PRESENT: alert Psychiatric exam: PRESENT: appropriate affect Skin exam: PRESENT: warm Results Laboratory Results: 07/20/17 04:15 07/20/17 04:15 07/18/17 07/20/17 15:55 04:15 Troponin I < 0.012 NT-Pro-B Natriuret Pep 4400 H Impressions: Chest X-Ray 07/18/17 11:12 IMPRESSION: NO ACUTE RADIOGRAPHIC FINDING IN THE CHEST. Abdomen/Pelvis CT 07/18/17 12:40 IMPRESSION: 1. Subtle inflammatory changes surrounding the pancreatic head possibly due to pancreatitis. Correlation with serum chemistries is recommended. 2. Nonobstructing stone right kidney. Assessment & Plan - Diagnosis (1) Pancreatitis Qualifiers: Chronicity: acute Pancreatitis type: other Acute pancreatitis complication: unspecified Qualified Code(s): K85.80 - Other acute pancreatitis without necrosis or infection Is this a current diagnosis for this admission?: Yes Plan: I would like to see her tolerating a regular diabetic diet prior to discharge. I will hold her another day (2) DM hyperosmolarity type II, uncontrolled Qualifiers: Diabetes mellitus prison insulin use: without prison use Diabetes mellitus complication detail: without coma Qualified Code(s): E11.00 - Type 2 diabetes mellitus with hyperosmolarity without nonketotic hyperglycemic- hyperosmolar coma ([facility]) Is this a current diagnosis for this admission?: Yes Plan: Continue her sliding scale. Control seems to be greatly improved on Amaryl. 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 Home meds
[2017-07-21] MEDS: INSULIN LISPRO 100 UNIT/ML 3 ML VIAL SUBCUT PRN (22:02)
[2017-07-22] MEDS: SACUBITRIL/VALSARTAN 24 MG/26 MG TABLET PO SCH (06:46)
[2017-07-22 07:38] LABS: HEMATOCRIT 38.5 % (36.0-47.0); HEMOGLOBIN 12.8 g/dL (12.0-15.5); MEAN CORPUSCULAR HEMOGLOBIN 30.2 pg (27.0-33.4); MEAN CORPUSCULAR HGB CONC 33.2 g/dL (32.0-36.0); MEAN CORPUSCULAR VOLUME 91 fl (80-97); PLATELET COUNT 196 10^3/uL (150-450); RED BLOOD COUNT 4.23 10^6/uL (3.72-5.28); RED CELL DISTRIBUTION WIDTH 15.1 % (11.5-14.0); WHITE BLOOD COUNT 12.5 10^3/uL (4.0-10.5)
[2017-07-22] MEDS: FUROSEMIDE 40 MG TABLET PO SCH (07:54)
[2017-07-22 07:56] LABS: ALBUMIN 3.1 g/dL (3.5-5.0); ANION GAP 9 (5-19); BLOOD UREA NITROGEN 16 mg/dL (7-20); CALCIUM 9.3 mg/dL (8.4-10.2); CARBON DIOXIDE 31 mmol/L (22-30); CHLORIDE 105 mmol/L (98-107); GLUCOSE 132 mg/dL (75-110); LIPASE 320.5 U/L (23-300); PHOSPHORUS 2.9 mg/dL (2.5-4.5); POTASSIUM 3.9 mmol/L (3.6-5.0); SODIUM 145.4 mmol/L (137-145)
[2017-07-22] MEDS: GLIMEPIRIDE 4 MG TABLET PO SCH (08:02)
[2017-07-22 08:16] VITALS: BP 131/59
[2017-07-22] MEDS: METOPROLOL SUCCINATE 50 MG TAB.SR.24H PO SCH (09:21)
[2017-07-22] MEDS: POTASSIUM CHLORIDE 10 MEQ TABLET.SA PO SCH (09:22)
[2017-07-22] MEDS: ASPIRIN 81 MG TABLET, ENT COATED PO SCH (09:23)
[2017-07-22] MEDS: APIXABAN 5 MG TABLET PO SCH (09:23)
[2017-07-22] MEDS: DIGOXIN 0.25 MG TABLET PO SCH (09:23)
--- NOTE | 2017-07-22 15:26 | PDOC DISCHARGE SUMMARY ---
General - Admit/Disc Date/PCP Admission Date/Primary Care Provider: 07/18/17 15:10 KACI NINA MD Discharge Date: 07/22/17 - Discharge Diagnosis (1) Pancreatitis Is this a current diagnosis for this admission?: Yes Summary: Presumably due to very poorly controlled diabetes. But on bowel rest and it resolved rapidly. Now tolerating a diabetic diet (2) DM hyperosmolarity type II, uncontrolled Is this a current diagnosis for this admission?: Yes Summary: Initially managed with sliding scale insulin, she has been changed over to Amaryl which appears to be working well for, and so I will discharge her with a prescription. 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 status she was put on therapeutic dose Lovenox, when her diet was restarted she was put back on her Xarelto. (4) Chronic a-fib Is this a current diagnosis for this admission?: Yes Summary: Managed with IV medications until her home medications could be restarted (5) Cardiomyopathy Is this a current diagnosis for this admission?: Yes Summary: Managed with IV medications until her home medications could be restarted - Additional Information Resuscitation Status: Full Code Discharge Diet: Diabetic Discharge Activity: Activity As Tolerated Prescriptions: Glimepiride [Amaryl 4 mg Tablet] 4 mg PO DAILY #30 tablet Home Medications: Digoxin [Lanoxin 0.25 mg Tablet] 0.25 mg PO DAILY 07/07/11 Aspirin [Aspirin EC] 81 mg PO DAILY 01/20/15 Nitroglycerin [Nitrostat 0.4 mg (1/150 Gr) Tabs 25/Bottle] 1 tab SL Q5MP PRN 02/22 Apixaban [Eliquis 5 mg Tablet] 5 mg PO BID 03/22/15 Furosemide [Lasix 40 mg Tablet] 40 mg PO QAM #30 tablet 12/15/15 Sacubitril/Valsartan [Entresto 24 mg-26 mg Tablet] 1 each PO BID 12/07/16 Metoprolol Succinate [Toprol XL 100 mg Tablet] 100 mg PO DAILY 07/18/17 Potassium Chloride 20 meq PO DAILY MDD take with lasix 07/18/17 Glimepiride [Amaryl 4 mg Tablet] 4 mg PO DAILY #30 tablet 07/22/17 History of Present Illness Patient complains of: Abdominal pain History of Present Illness: CHRISTINA VIVEROS is a 67 year old female with diabetes that has been poorly controlled. She recently came across some orange twizzlers and ate them until she became sick. Pain has not resolved, it is on her left flank, and has been associated with nausea and vomiting. She denies any fevers or chills. Denies diarrhea. Denies alcohol use. She smokes every day. She denies any weight loss or night sweats. Her lipase on presentation was 1313 Hospital Course Hospital Course: She was kept n.p.o., medications were converted to IV as possible, pain medication and antiemetics were provided as needed, she was covered with sliding scale insulin. When her abdominal pain resolved restarted her on clear liquid diet and that is been advanced now to a full diabetic diet. Her home medications have been restarted. She reports that she was supposed to start on Amaryl prior to admission but had not started taking it, so I started it here in the hospital. That appears to have worked well so I will discharge her with a prescription for it. Physical Exam Vital Signs: Temp Pulse Resp BP Pulse Ox 97.6 F 60 18 131/59 H 99 07/22/17 10:59 07/22/17 10:59 07/22/17 10:59 07/22/17 10:59 07/22/17 10:59 Intake & Output 07/21/17 07/22/17 07/23/17 05:59 05:59 05:59 Intake Total 2985 1323 440 Output Total 700 Balance 2285 1323 440 Weight 208 lb 12.444 oz General appearance: PRESENT: no acute distress, cooperative, obese Respiratory exam: PRESENT: clear to auscultation candice Cardiovascular exam: PRESENT: RRR GI/Abdominal exam: PRESENT: soft. ABSENT: tenderness Extremities exam: ABSENT: pedal edema Musculoskeletal exam: PRESENT: normal inspection Neurological exam: PRESENT: alert Psychiatric exam: PRESENT: appropriate affect Skin exam: PRESENT: dry, warm Results Laboratory Results: 07/22/17 07:23 07/22/17 07:23 07/22/17 07/22/17 07:23 07:23 WBC 12.5 H RBC 4.23 Hgb 12.8 Hct 38.5 MCV 91 MCH 30.2 MCHC 33.2 RDW 15.1 H Plt Count 196 Sodium 145.4 H Potassium 3.9 Chloride 105 Carbon Dioxide 31 H Anion Gap 9 BUN 16 Creatinine 0.80 Est GFR ( Amer) > 60 Est GFR (Non-Af Amer) > 60 Glucose 132 H Calcium 9.3 Phosphorus 2.9 Magnesium 1.9 Albumin 3.1 L Lipase 320.5 H 07/18/17 07/20/17 15:55 04:15 Troponin I < 0.012 NT-Pro-B Natriuret Pep 4400 H Impressions: Chest X-Ray 07/18/17 11:12 IMPRESSION: NO ACUTE RADIOGRAPHIC FINDING IN THE CHEST. Abdomen/Pelvis CT 07/18/17 12:40 IMPRESSION: 1. Subtle inflammatory changes surrounding the pancreatic head possibly due to pancreatitis. Correlation with serum chemistries is recommended. 2. Nonobstructing stone right kidney. Qualifiers - * PATIENT BEING DISCHARGED WITH ANY OF THE FOLLOWING DIAGNOSIS: No
== END 2017-07-22 11:20 | disposition home or self-care (01) | DRG 438 ==
LOC: ER 10:35 → EH 15:10 → 4N 16:46
PROVIDERS: ADMIT Internal Medicine; ATTEND Internal Medicine
DX: K85.80 Other acute pancreatitis without necrosis or infection (principal); E11.00 Type 2 diabetes mellitus with hyperosmolarity without nonketotic hyperglycemic-hyperosmolar coma (NKHHC); I42.9 Cardiomyopathy, unspecified; E11.65 Type 2 diabetes mellitus with hyperglycemia; F17.200 Nicotine dependence, unspecified, uncomplicated; I25.10 Atherosclerotic heart disease of native coronary artery without angina pectoris; I11.0 Hypertensive heart disease with heart failure; I25.5 Ischemic cardiomyopathy; I50.9 Heart failure, unspecified; E78.5 Hyperlipidemia, unspecified; I48.2 Chronic atrial fibrillation; E66.9 Obesity, unspecified; Z79.01 Long term (current) use of anticoagulants; Z79.82 Long term (current) use of aspirin; Z79.899 Other long term (current) drug therapy; Z79.84 Long term (current) use of oral hypoglycemic drugs; Z95.5 Presence of coronary angioplasty implant and graft; Z90.49 Acquired absence of other specified parts of digestive tract; Z98.51 Tubal ligation status; Z82.49 Family history of ischemic heart disease and other diseases of the circulatory system; Z88.0 Allergy status to penicillin
CPT/HCPCS: 36415; 71045; 74177; 80053; 80069; 80162; 81001; 82550; 82962; 83036; 83540; 83690; 83735; 83880; 84100; 84443; 84484; 85025; 85027; 93005; 93010; 96360; 99285; J1160; J1170; J1650; J1815; J1940; J2405; J3490; J7030; S0028; S0119

== ENCOUNTER 2017-09-05 18:27 | Emergency (ER) | payer MEDICARE, MEDICAID ==
[2017-09-05] MEDS ORDERED: DICYCLOMINE HCL 20 MG TABLET PO ONE (18:55)
[2017-09-05] MEDS ORDERED: ONDANSETRON 4 MG TAB.RAPDIS PO ONE (18:55)
--- NOTE | 2017-09-05 18:57 | ER Document Report ---
ED Medical Screen (RME) - General Chief Complaint: Chest Pain > 30 Stated Complaint: CHEAST/UPPER ABDOMINAL PAIN Time Seen by Provider: 09/05/17 18:51 Notes: RAPID MEDICAL EVALUATION DISCLOSURE I have seen this patient as part of a Rapid Medical Evaluation and, if applicable, placed any initially appropriate orders. The patient will be seen and fully evaluated, including a full history and physical exam, by a provider ( in Main ED or Fast Track) when a room becomes available. 67-year-old female here with complaints of epigastric abdominal pain and midsternal chest pressure (elephant sitting on me) as well as shortness of breath and nausea ongoing for the past 7 days. Symptoms not worse with exertion. They are worse with eating certain foods such as pizza. She thinks she may be having another episode of pancreatitis since she has had this in the past. EXAM CTAB RRR Moderate epigastric TTP TRAVEL OUTSIDE OF THE [place] IN LAST 30 DAYS: Yes - Related Data Allergies/Adverse Reactions: Penicillins Allergy (Severe, Verified 07/18/17 17:34) Hives Past Medical History - Past Medical History Cardiac Medical History: Reports: Hx Atrial Fibrillation, Hx Congestive Heart Failure, Hx Coronary Artery Disease, Hx Heart Attack - OCT 2013, Hx Hypercholesterolemia, Hx Hypertension - ON MEDS Pulmonary Medical History: Denies: Hx Asthma, Hx Bronchitis, Hx COPD, Hx Pneumonia Neurological Medical History: Denies: Hx Cerebrovascular Accident, Hx Seizures Endocrine Medical History: Reports: Hx Diabetes Mellitus Type 2 Renal/ Medical History: Reports: Hx Kidney Stones. Denies: Hx Peritoneal Dialysis GI Medical History: Denies: Hx Hepatitis, Hx Hiatal Hernia, Hx Ulcer Musculoskeltal Medical History: Denies Hx Arthritis Infectious Medical History: Denies: Hx Hepatitis Past Surgical History: Reports: Hx Cardiac Catheterization, Hx Cardiac Surgery - stent placement, Hx Cholecystectomy, Hx Coronary Stent, Hx Hysterectomy, Hx Tubal Ligation. Denies: Hx Mastectomy, Hx Open Heart Surgery, Hx Pacemaker - Immunizations Immunizations up to date: Yes Hx Diphtheria, Pertussis, Tetanus Vaccination: Yes History of Influenza Vaccine for 12/2016 - 05/2017 Season: No Physical Exam - Vital signs Vitals: Temp Pulse Resp BP Pulse Ox 97.5 F 73 16 118/67 95 09/05/17 18:48 09/05/17 18:48 09/05/17 18:48 09/05/17 18:48 09/05/17 18:48 Course - Vital Signs Vital signs: Temp Pulse Resp BP Pulse Ox 97.5 F 73 16 118/67 95 09/05/17 18:48 09/05/17 18:48 09/05/17 18:48 09/05/17 18:48 09/05/17 18:48 Doctor's Discharge - Discharge Referrals: KACI NINA MD [Primary Care Provider] - Follow up as needed
[2017-09-05 19:29] LABS: ABSOLUTE BASOPHILS # (AUTO) 0.1 10^3/uL (0.0-0.2); ABSOLUTE EOSINOPHILS # (AUTO) 0.3 10^3/uL (0.0-0.6); ABSOLUTE LYMPHOCYTES (AUTO) 2.9 10^3/uL (0.5-4.7); ABSOLUTE MONOCYTES (AUTO) 0.7 10^3/uL (0.1-1.4); ABSOLUTE NEUT (AUTO) 11.8 10^3/uL (1.7-8.2); BASOPHILS % (AUTO) 0.9 % (0-2); EOSINOPHILS % (AUTO) 2.1 % (0-6); HEMATOCRIT 38.5 % (36.0-47.0); HEMOGLOBIN 13.2 g/dL (12.0-15.5); LYMPHOCYTES % (AUTO) 18.4 % (13-45); MEAN CORPUSCULAR HEMOGLOBIN 31.1 pg (27.0-33.4); MEAN CORPUSCULAR HGB CONC 34.2 g/dL (32.0-36.0); MEAN CORPUSCULAR VOLUME 91 fl (80-97); MONOCYTES % (AUTO) 4.2 % (3-13); PLATELET COUNT 225 10^3/uL (150-450); RED BLOOD COUNT 4.24 10^6/uL (3.72-5.28); RED CELL DISTRIBUTION WIDTH 14.5 % (11.5-14.0); SEGMENTED NEUTROPHILS % (AUTO) 74.4 % (42-78); TOTAL CELLS COUNTED % (AUTO) 100 %; WHITE BLOOD COUNT 15.8 10^3/uL (4.0-10.5)
[2017-09-05 19:35] LABS: APPEARANCE,URINE CLEAR; BILIRUBIN,URINE NEGATIVE (NEGATIVE); COLOR,URINE YELLOW; GLUCOSE, URINE NEGATIVE (NEGATIVE); KETONES,URINE NEGATIVE (NEGATIVE); LEUKOCYTE ESTERASE,URINE NEGATIVE (NEGATIVE); NITRITE,URINE NEGATIVE (NEGATIVE); PROTEIN,URINE 30 mg/dL (NEGATIVE); URINE SPECIFIC GRAVITY 1.009; UROBILINOGEN,URINE NEGATIVE mg/dL (<2.0)
[2017-09-05 19:53] LABS: ALANINE AMINOTRANSFERASE 23 U/L (9-52); ALBUMIN 3.7 g/dL (3.5-5.0); ALKALINE PHOSPHATASE 72 U/L (38-126); ANION GAP 9 (5-19); ASPARTATE AMINO TRANSFERASE 17 U/L (14-36); BILIRUBIN,DIRECT 0.3 mg/dL (0.0-0.4); BILIRUBIN,TOTAL 0.6 mg/dL (0.2-1.3); BLOOD UREA NITROGEN 24 mg/dL (7-20); CALCIUM 9.2 mg/dL (8.4-10.2); CARBON DIOXIDE 31 mmol/L (22-30); CHLORIDE 101 mmol/L (98-107); GLUCOSE 225 mg/dL (75-110); LIPASE 461.3 U/L (23-300); POTASSIUM 4.2 mmol/L (3.6-5.0); SODIUM 141.3 mmol/L (137-145); TOTAL PROTEIN 7.3 g/dL (6.3-8.2)
[2017-09-05] MEDS ORDERED: FENTANYL CITRATE INJ/PF 100 MCG/2 ML AMPUL IV ONE (21:22)
[2017-09-05] MEDS ORDERED: ONDANSETRON HCL INJ/PF 4 MG/2 ML SDV IV ONE (21:22)
[2017-09-05] MEDS ORDERED: NORMAL SALINE 1000 ML 1,000 ML IV PRN (21:24)
--- NOTE | 2017-09-06 00:51 | RADIOLOGY REPORT (SQ) ---
EXAM DESCRIPTION: CT ABDOMEN PELVIS WITH IV CONTRAST COMPLETED DATE/TME: 09/06/2017 00:00 CLINICAL HISTORY: Pancreatitis COMPARISON: 07/18/2017 TECHNIQUE: CT of the abdomen and pelvis performed following IV administration of 94 mL of Isovue-370. Delayed images obtained. DLP: 1859.72 mGycm FINDINGS: Lung Bases: The visualized lung bases are clear. Bones: No destructive bone lesions identified. Abdomen: Liver: The liver has normal size and density. No intrahepatic mass or biliary dilatation. Gallbladder: Prior cholecystectomy. Spleen, Pancreas, and Adrenal Glands: The spleen and adrenal glands are unremarkable. No definite peripancreatic inflammatory change. No peripancreatic fluid collection. Kidneys: 0.9 cm calculus in the right kidney has migrated to the right UPJ but is still not producing obstruction or hydronephrosis at this time. Bosniak class I left renal cysts are stable. Vasculature: Aortoiliac atherosclerosis. IVC is unremarkable. The portal vein is patent. The proximal visceral and renal arteries are patent. Stomach: The stomach and duodenum have normal course. Other: No free intraperitoneal air. No free fluid or lymphadenopathy. Pelvis: Bladder: Urinary bladder is unremarkable. Bowel: No dilated loops of large or small bowel. Scattered diverticula of the colon. No pericolic inflammatory change. Appendix: Normal appendix. Pelvis: Prior hysterectomy. IMPRESSION: 1. No evidence of acute pancreatitis by CT criteria. 2. The 0.9 cm calculus in the right renal collecting system has migrated to the right UPJ however there is no evidence of obstruction or hydronephrosis at this time. This exam was performed according to our departmental dose-optimization program, which includes automated exposure control, adjustment of the mA and/or kV according to patient size and/or use of iterative reconstruction technique.
--- NOTE | 2017-09-06 01:29 | ER Document Report ---
ED General - General Chief Complaint: Chest Pain > 30 Stated Complaint: CHEST/UPPER ABDOMINAL PAIN Time Seen by Provider: 09/05/17 18:51 Mode of Arrival: Ambulatory Notes: Chief complaint: abdominal pain: History of complain:( obtained from----patient) 67 years old female presents today with left upper quadrant abdominal pain, with a history of pancreatitis. She claims that this is due to pancreatitis. Pain is radiating to the back. Associated with nausea no vomiting. Denies any diarrhea or constipation. Denies any dysuria frequency or hematuria. Onset: As above Duration: Just prior to arrival Severity: Moderate to severe Quality: Sharp Context: Possible pancreatitis Exacerbating factor and relieving factors: None obesity REVIEW OF SYSTEMS: CONSTITUTIONAL : Denies fever, chills, or sweats. Denies recent illness. EENT: Denies eye, ear, throat, or mouth pain or symptoms. Denies nasal or sinus congestion or discharge. Denies throat, tongue, or mouth swelling or difficulty swallowing. CARDIOVASCULAR: Denies chest pain. Denies palpitations or racing or irregular heart beat. Denies ankle edema. RESPIRATORY: Denies cough, cold, or chest congestion. Denies shortness of breath, difficulty breathing, or wheezing. GASTROINTESTINAL: Denies distention. Denies nausea, vomiting, or diarrhea. Denies blood in vomitus, stools, or per rectum. Denies black, tarry stools. Denies constipation. GENITOURINARY: Denies difficulty urinating, painful urination, burning, frequency, blood in urine, or discharge. FEMALE GENITOURINARY: Denies vaginal bleeding, heavy or abnormal periods, irregular periods. Denies vaginal discharge or odor. MUSCULOSKELETAL: Denies back or neck pain or stiffness. Denies joint pain or swelling. SKIN: Denies rash, lesions or sores. HEMATOLOGIC : Denies easy bruising or bleeding. LYMPHATIC: Denies swollen, enlarged glands. NEUROLOGICAL: Denies confusion or altered mental status. Denies passing out or loss of consciousness. Denies dizziness or lightheadedness. Denies headache. Denies weakness or paralysis or loss of use of either side. Denies problems with gait or speech. Denies sensory loss, numbness, or tingling. Denies seizures. PSYCHIATRIC: Denies anxiety or stress. Denies depression, suicidal ideation, or homicidal ideation. ALL OTHER SYSTEMS REVIEWED AND NEGATIVE. PHYSICAL EXAMINATION: GENERAL: Well-appearing, well-nourished and in no acute distress. HEAD: Atraumatic, normocephalic. EYES: Pupils equal round and reactive to light, extraocular movements intact, conjunctiva are normal. ENT: Nares patent, oropharynx clear without exudates. Moist mucous membranes. NECK: Normal range of motion, supple without lymphadenopathy LUNGS: Breath sounds clear to auscultation bilaterally and equal. No wheezes rales or rhonchi. HEART: Regular rate and rhythm without murmurs ABDOMEN: Soft, tender over the mid abdominal region, nondistended abdomen. No guarding, no rebound. No masses appreciated. Female : deferred Musculoskeletal: Normal range of motion, no pitting or edema. No cyanosis. NEUROLOGICAL: Cranial nerves grossly intact. Normal speech, normal gait. Normal sensory, motor exams PSYCH: Normal mood, normal affect. SKIN: Warm, Dry, normal turgor, no rashes or lesions noted. Dictation was performed using [employer] voice recognition software TRAVEL OUTSIDE OF THE [place] IN LAST 30 DAYS: Yes - HPI Patient complains to provider of: Dictated - Related Data Allergies/Adverse Reactions: Penicillins Allergy (Severe, Verified 07/18/17 17:34) Hives Past Medical History - Social History Smoking Status: Current Every Day Smoker Cigarette use (# per day): No Chew tobacco use (# tins/day): No Smoking Education Provided: No Frequency of alcohol use: Rare Drug Abuse: None Lives with: Family Family History: Reviewed & Not Pertinent, CAD - Both parents of complications of coronary artery disease with CHF Patient has suicidal ideation: No Patient has homicidal ideation: No - Past Medical History Cardiac Medical History: Reports: Hx Atrial Fibrillation, Hx Congestive Heart Failure, Hx Coronary Artery Disease, Hx Heart Attack - OCT 2013, Hx Hypercholesterolemia, Hx Hypertension - ON MEDS Pulmonary Medical History: Denies: Hx Asthma, Hx Bronchitis, Hx COPD, Hx Pneumonia Neurological Medical History: Denies: Hx Cerebrovascular Accident, Hx Seizures Endocrine Medical History: Reports: Hx Diabetes Mellitus Type 2 Renal/ Medical History: Reports: Hx Kidney Stones. Denies: Hx Peritoneal Dialysis GI Medical History: Denies: Hx Hepatitis, Hx Hiatal Hernia, Hx Ulcer Musculoskeltal Medical History: Denies Hx Arthritis Infectious Medical History: Denies: Hx Hepatitis Past Surgical History: Reports: Hx Cardiac Catheterization, Hx Cardiac Surgery - stent placement, Hx Cholecystectomy, Hx Coronary Stent, Hx Hysterectomy, Hx Tubal Ligation. Denies: Hx Mastectomy, Hx Open Heart Surgery, Hx Pacemaker - Immunizations Immunizations up to date: Yes Hx Diphtheria, Pertussis, Tetanus Vaccination: Yes Review of Systems - Review of Systems Notes: Dictated Physical Exam - Vital signs Vitals: Temp Pulse Resp BP Pulse Ox 97.5 F 73 16 118/67 95 09/05/17 18:48 09/05/17 18:48 09/05/17 18:48 09/05/17 18:48 09/05/17 18:48 - Notes Notes: AccordingDictated Course - Re-evaluation Re-evalutation: 09/06/17 01:28 Patient was given fentanyl, which relieved the pain - Vital Signs Vital signs: Temp Pulse Resp BP Pulse Ox 97.5 F 73 19 120/73 98 09/05/17 18:48 09/05/17 18:48 09/05/17 20:22 09/05/17 20:22 09/05/17 20:22 - Laboratory Result Diagrams: 09/05/17 19:15 09/05/17 19:15 Laboratory results interpreted by me: 09/05/17 09/05/17 09/05/17 19:15 19:15 19:15 WBC 15.8 H RDW 14.5 H Absolute Neutrophils 11.8 H Carbon Dioxide 31 H BUN 24 H Est GFR (Non-Af Amer) 57 L Glucose 225 H Lipase 461.3 H Urine Protein 30 H Urine Blood MODERATE H - Diagnostic Test Radiology reviewed: Reports reviewed - CT of the abdomen reported by radiologist as no acute pancreatitis but incidental finding of right ureteric stone at the UV junction nonobstructing. Discharge - Discharge Clinical Impression: Ureteric stone Abdominal pain Qualifiers: Abdominal location: periumbilical Qualified Code(s): R10.33 - Periumbilical pain Condition: Fair Disposition: HOME, SELF-CARE Instructions: Abdominal Pain ([facility]) Prescriptions: Hydrocodone/Acetaminophen [[place] 5-325 mg Tablet] 1 tab PO TID #14 tablet Referrals: KACI NINA MD [Primary Care Provider] - Follow up as needed
[2017-09-06 02:18] VITALS: BP 121/67
--- NOTE | 2017-09-07 00:20 | EKG REPORT ---
SEVERITY:- ABNORMAL ECG - ATRIAL FIBRILLATION, V-RATE 73-107 BORDERLINE T ABNORMALITIES, INFERIOR LEADS : Confirmed by: Iveth Aguirre MD 07-Sep-2017 00:19:35
== END 2017-09-06 02:22 | disposition home or self-care (01) ==
LOC: ER 18:27
DX: N20.1 Calculus of ureter (principal); R10.33 Periumbilical pain; R10.12 Left upper quadrant pain; R11.0 Nausea; F17.200 Nicotine dependence, unspecified, uncomplicated; I25.10 Atherosclerotic heart disease of native coronary artery without angina pectoris; I10 Essential (primary) hypertension; E11.9 Type 2 diabetes mellitus without complications; Z88.0 Allergy status to penicillin; Z87.19 Personal history of other diseases of the digestive system; Z95.5 Presence of coronary angioplasty implant and graft
CPT/HCPCS: 93005; 99284; 96374; 36415; 83690; 85025; 80053; 81001; 74177; 93010; A9270 ×2; J3010; J7030; J3490; S0119

== ENCOUNTER 2017-09-08 21:34 | Inpatient (IN) | payer MEDICARE, MEDICAID ==
--- NOTE | 2017-09-08 21:59 | ER Document Report ---
ED Neuro Symptoms/Deficit - General Stated Complaint: LEFT ARM WEAKNESS Time Seen by Provider: 09/08/17 21:40 Notes: Patient is a 67-year-old female who comes emergency department by EMS for chief complaint of weakness, heaviness, and a tingling sensation in her left arm. Symptoms started at 1300 today, have not resolved. She denies any chest pain, leg or face symptoms, denies any other weakness or tingling sensations. Patient denies history of CVA, she is on Eliquis and aspirin for atrial fibrillation, also has a history of type 2 diabetes and CA. TRAVEL OUTSIDE OF THE [place] IN LAST 30 DAYS: Yes - Related Data Allergies/Adverse Reactions: Penicillins Allergy (Severe, Verified 07/18/17 17:34) Hives Past Medical History - General Information source: Patient - Social History Smoking Status: Current Every Day Smoker Drug Abuse: None Lives with: Alone Family History: Reviewed & Not Pertinent, CAD - Both parents of complications of coronary artery disease with CHF - Past Medical History Cardiac Medical History: Reports: Hx Atrial Fibrillation, Hx Congestive Heart Failure, Hx Coronary Artery Disease, Hx Heart Attack - OCT 2013, Hx Hypercholesterolemia, Hx Hypertension - ON MEDS Pulmonary Medical History: Denies: Hx Asthma, Hx Bronchitis, Hx COPD, Hx Pneumonia Neurological Medical History: Denies: Hx Cerebrovascular Accident, Hx Seizures Endocrine Medical History: Reports: Hx Diabetes Mellitus Type 2 Renal/ Medical History: Reports: Hx Kidney Stones. Denies: Hx Peritoneal Dialysis GI Medical History: Denies: Hx Hepatitis, Hx Hiatal Hernia, Hx Ulcer Musculoskeltal Medical History: Denies Hx Arthritis Infectious Medical History: Denies: Hx Hepatitis Past Surgical History: Reports: Hx Cardiac Catheterization, Hx Cardiac Surgery - stent placement, Hx Cholecystectomy, Hx Coronary Stent, Hx Hysterectomy, Hx Tubal Ligation. Denies: Hx Mastectomy, Hx Open Heart Surgery, Hx Pacemaker - Immunizations Immunizations up to date: Yes Hx Diphtheria, Pertussis, Tetanus Vaccination: Yes Review of Systems - Review of Systems Constitutional: No symptoms reported EENT: No symptoms reported Cardiovascular: No symptoms reported Respiratory: No symptoms reported Gastrointestinal: No symptoms reported Genitourinary: No symptoms reported Female Genitourinary: No symptoms reported Musculoskeletal: No symptoms reported Skin: No symptoms reported Hematologic/Lymphatic: No symptoms reported Neurological/Psychological: See HPI Physical Exam - Vital signs Vitals: Pulse Ox 96 09/08/17 21:47 - Notes Notes: GENERAL: Alert. No acute distress. HEAD: Normocephalic, atraumatic. EYES: Pupils equal, round, and reactive to light. Extraocular movements intact. ENT: Oral mucosa moist, tongue midline. NECK: Full range of motion. Supple. Trachea midline. LUNGS: Clear to auscultation bilaterally, no wheezes, rales, or rhonchi. No respiratory distress. HEART: Irregularly irregular. No murmur noted. ABDOMEN: Soft, non-tender. Non-distended. Bowel sounds present in all 4 quadrants. EXTREMITIES: Moves all 4 extremities spontaneously. No edema, normal radial and dorsalis pedis pulses bilaterally. No cyanosis. BACK: no cervical, thoracic, lumbar midline tenderness. No saddle anesthesia, normal distal neurovascular exam. 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 PSYCH: Normal affect, normal mood. SKIN: Warm, dry, normal turgor. No rashes or lesions noted. Course - Re-evaluation Re-evalutation: 09/08/17 21:45 On my initial evaluation patient does have decreased strength with stone carver in the left hand and slightly more difficulty with finger-nose Romberg testing although this is subtle. Romberg test is normal. No other deficit noted. Patient's symptoms started at 1 PM, this is now almost 9 hours later, outside of the window for TPA at this point. On reevaluation no neurological deficits are noted. Patient is now complaining of pain in her upper abdomen, states it is has been there since she was examined the first time. She is well-appearing. EKG showing atrial fibrillation at a rate of 100, this is chronic. Chest x-ray unremarkable, CAT scan of the head with no acute findings. CBC shows leukocytosis but not significantly changed from prior. Chemistry shows hyperglycemia in the 300s with no acidosis (normal and got gap and bicarbonate) . Lipase shows 800. Trending upwards. No vomiting. No guarding. CAT scan yesterday with no concerning findings, shows kidney stone. Urinalysis unremarkable other than some protein. Discussed with Dr. Sandoval. Recommends admission because of possible TIA along with pancreatitis. Discussed the patient, she is very agreeable with this. Discussed with Dr. Fatima, hospitalist, patient will be admitted to telemetry observation. - Vital Signs Vital signs: Temp Pulse Resp BP Pulse Ox 80 20 94/45 L 94 09/09/17 00:00 09/09/17 03:01 09/09/17 03:01 09/09/17 03:01 - Laboratory Result Diagrams: 09/08/17 20:00 09/08/17 20:00 Laboratory results interpreted by me: 09/08/17 09/08/17 09/08/17 20:00 20:00 20:00 WBC 16.3 H RDW 14.5 H Absolute Neutrophils 12.1 H APTT 36.3 H BUN 21 H Est GFR (Non-Af Amer) 58 L Glucose 376 H Lipase Urine Protein Urine Glucose (UA) Urine Urobilinogen 09/08/17 09/08/17 20:00 23:35 WBC RDW Absolute Neutrophils APTT BUN Est GFR (Non-Af Amer) Glucose Lipase 808.0 H Urine Protein 100 H Urine Glucose (UA) >=500 H Urine Urobilinogen 4.0 H Discharge - Discharge Clinical Impression: LUE weakness, Resolved focal neurological deficit, Elevated lipase, Hyperglycemia Condition: Stable Disposition: ADMITTED OBSERVATION Admitting Provider: Hospitalist Unit Admitted: Telemetry
[2017-09-08 22:00] LABS: INTERNATIONAL RATION (INR) 1.11; PROTHROMBIN TIME 14.9 SEC (11.4-15.4)
[2017-09-08 22:01] LABS: PARTIAL THROMBOPLASTIN TIME 36.3 SEC (23.5-35.8)
[2017-09-08 22:04] LABS: ABSOLUTE BASOPHILS # (AUTO) 0.1 10^3/uL (0.0-0.2); ABSOLUTE EOSINOPHILS # (AUTO) 0.3 10^3/uL (0.0-0.6); ABSOLUTE MONOCYTES (AUTO) 0.8 10^3/uL (0.1-1.4); ABSOLUTE NEUT (AUTO) 12.1 10^3/uL (1.7-8.2); BASOPHILS % (AUTO) 0.6 % (0-2); HEMATOCRIT 37.4 % (36.0-47.0); HEMOGLOBIN 12.7 g/dL (12.0-15.5); LYMPHOCYTES % (AUTO) 18.3 % (13-45); MEAN CORPUSCULAR HEMOGLOBIN 30.9 pg (27.0-33.4); MEAN CORPUSCULAR HGB CONC 34.1 g/dL (32.0-36.0); MEAN CORPUSCULAR VOLUME 91 fl (80-97); MONOCYTES % (AUTO) 4.9 % (3-13); PLATELET COUNT 232 10^3/uL (150-450); RED BLOOD COUNT 4.12 10^6/uL (3.72-5.28); RED CELL DISTRIBUTION WIDTH 14.5 % (11.5-14.0); SEGMENTED NEUTROPHILS % (AUTO) 74.2 % (42-78); TOTAL CELLS COUNTED % (AUTO) 100 %; WHITE BLOOD COUNT 16.3 10^3/uL (4.0-10.5)
--- NOTE | 2017-09-08 22:13 | RADIOLOGY REPORT (SQ) ---
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 TECHNIQUE: Axial images acquired through the brain without intravenous contrast. Images reviewed wi th bone, brain and subdural windows. Images stored on PACS. All CT scanners at this facility use dose modulation, iterative reconstruction, and/or weight based d osing when appropriate to reduce radiation dose to as low as reasonably achievable (ALARA). [facility]: Dose Right [facility]: CareDose [facility]: Dose Right [facility]: Teradose 4D [facility]: [employer] RADIATION DOSE: CT Rad equipment meets quality standard of care and radiation dose reduction techniq ues were employed. CTDIvol: 53.2 mGy. DLP: 964 mGy-cm. mGy. LIMITATIONS: None. FINDINGS: VENTRICLES: Normal size and contour. CEREBRUM: No masses. No hemorrhage. No midline shift. No evidence for acute infarction. Normal gra y/white matter differentiation. No areas of low density in the white matter. CEREBELLUM: No masses. No hemorrhage. No alteration of density. No evidence for acute infarction. EXTRAAXIAL SPACES: No fluid collections. No masses. ORBITS AND GLOBE: No intra- or extraconal masses. Normal contour of globe without masses. CALVARIUM: No fracture. PARANASAL SINUSES: No fluid or mucosal thickening. SOFT TISSUES: No mass or hematoma. OTHER: No other significant finding. IMPRESSION: NORMAL BRAIN CT WITHOUT CONTRAST. EVIDENCE OF ACUTE STROKE: NO. COMMENT: Quality ID # [id number]: Final reports with documentation of one or more dose reduction techniques (e.g., Automated exposure control, adjustment of the mA and/or kV according to patient size, use of iterative reconstruction technique) TECHNICAL DOCUMENTATION: JOB ID: [id number] [employer]- All Rights Reserved Reading location - IP/workstation name: [email or web address]
--- NOTE | 2017-09-08 22:17 | RADIOLOGY REPORT (SQ) ---
EXAM DESCRIPTION: CHEST SINGLE VIEW COMPLETED DATE/TIME: 09/08/2017 10:09 pm REASON FOR STUDY: CVA workup COMPARISON: None. EXAM PARAMETERS: NUMBER OF VIEWS: One view. TECHNIQUE: Single frontal radiographic view of the chest acquired. RADIATION DOSE: NA LIMITATIONS: None. FINDINGS: LUNGS AND PLEURA: No opacities, masses or pneumothorax. No pleural effusion. MEDIASTINUM AND HILAR STRUCTURES: No masses. Contour normal. HEART AND VASCULAR STRUCTURES: Heart normal in size. Normal vasculature. BONES: No acute findings. HARDWARE: None in the chest. OTHER: No other significant finding. IMPRESSION: NO ACUTE RADIOGRAPHIC FINDING IN THE CHEST. TECHNICAL DOCUMENTATION: JOB ID: [id number] [employer]- All Rights Reserved Reading location - IP/workstation name: [email or web address]
[2017-09-08 22:25] LABS: ALANINE AMINOTRANSFERASE 11 U/L (9-52); ALBUMIN 3.6 g/dL (3.5-5.0); ALKALINE PHOSPHATASE 80 U/L (38-126); ANION GAP 13 (5-19); ASPARTATE AMINO TRANSFERASE 19 U/L (14-36); BILIRUBIN,DIRECT 0.4 mg/dL (0.0-0.4); BILIRUBIN,TOTAL 0.4 mg/dL (0.2-1.3); BLOOD UREA NITROGEN 21 mg/dL (7-20); CALCIUM 9.1 mg/dL (8.4-10.2); CARBON DIOXIDE 30 mmol/L (22-30); CHLORIDE 101 mmol/L (98-107); CREATINE KINASE 32 U/L (30-135); GLUCOSE 376 mg/dL (75-110); POTASSIUM 4.2 mmol/L (3.6-5.0); SODIUM 143.5 mmol/L (137-145); TOTAL PROTEIN 7.2 g/dL (6.3-8.2)
[2017-09-08 22:35] LABS: CREATINE KINASE MB 0.36 ng/mL (<4.55)
[2017-09-08 22:36] LABS: TROPONIN I < 0.012 ng/mL
[2017-09-08 23:52] LABS: APPEARANCE,URINE SLIGHTLY-CLOUDY; BILIRUBIN,URINE NEGATIVE (NEGATIVE); COLOR,URINE YELLOW; GLUCOSE, URINE >=500 mg/dL (NEGATIVE); KETONES,URINE NEGATIVE (NEGATIVE); LEUKOCYTE ESTERASE,URINE NEGATIVE (NEGATIVE); NITRITE,URINE NEGATIVE (NEGATIVE); PROTEIN,URINE 100 mg/dL (NEGATIVE); URINE SPECIFIC GRAVITY 1.018
[2017-09-09] MEDS ORDERED: ASPIRIN 81 MG TABLET, CHEWABLE PO ONE (00:30)
[2017-09-09] MEDS ORDERED: NITROGLYCERIN 0.4 MG/TAB 25 TAB/BOTTLE SL PRN (02:28)
[2017-09-09] MEDS ORDERED: DEXTROSE 40% GEL 15 GM TUBE PO PRN ×2 (02:46)
[2017-09-09] MEDS ORDERED: GLUCAGON,HUMAN RECOMB 1 MG INJ SUBCUT PRN (02:46)
[2017-09-09] MEDS ORDERED: DEXTROSE 50%-WATER 25 GM/50 ML DISP.SYRIN IV PRN ×2 (02:46)
--- NOTE | 2017-09-09 02:46 | PDOC H&P ---
History of Present Illness Admission Date/PCP: 09/09/17 00:48 KACI NINA MD Patient complains of: Left-sided weakness History of Present Illness: CHRISTINA VIVEROS is a 67 year old woman with A. fib, on anticoagulation with Eliquis. She states she has been taking her medications as prescribed, this includes a daily baby aspirin. Late Saturday night, several hours ago, the patient was found to be tripping over things in her home by her granddaughter. Her granddaughter also thought that she had a left facial droop which the patient stated she could not detect. Patient did feel some left arm tingling and numbness. She agreed to come into the ER. She states that since being in the ER her symptoms have gotten better. She has a little bit of mild tingling and numbness in the left distal arm but that is overall improving. She does not feel that she has left-sided weakness. She is complaining of epigastric abdominal pain. In the ER she was found to have left-sided weakness versus right in the upper extremities. She is being admitted to the hospitalist service for evaluation for possible stroke. In addition, the patient has a lipase of 800 and she does have epigastric pain. She states she has a history of pancreatitis. Past Medical History Past Medical History: Insomnia Cardiac Medical History: Reports: Atrial Fibrillation, Congestive Heart Failure , Coronary Artery Disease, Myocardial Infarction - OCT 2013, Hyperlipidema, Hypertension - ON MEDS Pulmonary Medical History: Denies: Asthma, Bronchitis, Chronic Obstructive Pulmonary Disease (COPD), Pneumonia Neurological Medical History: Denies: Hemorrhagic CVA, Ischemic CVA, Seizures Endocrine Medical History: Reports: Diabetes Mellitus Type 2, Other - Diabetic neuropathy Renal/ Medical History: Reports: Nephrolithiasis Denies: Chronic Kidney Disease Malignancy Medical History: Denies: Other - History of uterine cancer GI Medical History: Reports: Other - Pancreatitis history Denies: Hepatitis, Hiatal Hernia Musculoskeltal Medical History: Denies: Arthritis Psychiatric Medical History: Denies: Depression, General Anxiety Disorder Hematology: Denies: Anemia, Sickle Cell Disease Infectious Medical History: Denies: None Past Surgical History Past Surgical History: Reports: Cardiac Catheterization, Cholecystectomy, Coronary Stent, Hysterectomy, Tubal Ligation Denies: Amputation, Mastectomy, Pacemaker Social History Information Source: Patient Lives with: Family Smoking Status: Current Every Day Smoker Cigarettes Packs Per Day: 0.2 Number of Years Smokin Frequency of Alcohol Use: None Hx Recreational Drug Use: No Drugs: None Hx Prescription Drug Abuse: No - Advance Directive Resuscitation Status: Full Code Surrogate healthcare decision maker:: Patient's granddaughter Nusrat Purcell, patient cannot recall her phone number but states that it should be in this computerized medical record Family History Family History: CAD - Both parents of complications of coronary artery disease with CHF Parental Family History Reviewed: Yes - Mother with heart problems, father with heart problems Children Family History Reviewed: Yes - sHe states her children are healthy Sibling(s) Family History Reviewed.: Yes - Other had an ME which led to his from what I can gather Medication/Allergy Home Medications: Digoxin [Lanoxin 0.25 mg Tablet] 0.25 mg PO DAILY 07/07/11 Aspirin [Aspirin EC] 81 mg PO DAILY 01/20/15 Nitroglycerin [Nitrostat 0.4 mg (1/150 Gr) Tabs 25/Bottle] 1 tab SL Q5MP PRN 02/22 Apixaban [Eliquis 5 mg Tablet] 5 mg PO BID 03/22/15 Furosemide [Lasix 40 mg Tablet] 40 mg PO QAM #30 tablet 12/15/15 Sacubitril/Valsartan [Entresto 24 mg-26 mg Tablet] 1 each PO BID 12/07/16 Metoprolol Succinate [Toprol XL 100 mg Tablet] 100 mg PO DAILY 07/18/17 Potassium Chloride 20 meq PO DAILY MDD take with lasix 07/18/17 Glimepiride [Amaryl 4 mg Tablet] 4 mg PO DAILY #30 tablet 07/22/17 Hydrocodone/Acetaminophen [[place] 5-325 mg Tablet] 1 tab PO TID #14 tablet Allergies/Adverse Reactions: Penicillins Allergy (Severe, Verified 07/18/17 17:34) Hives Review of Systems Constitutional: PRESENT: weakness. ABSENT: anorexia, chills, fatigue Eyes: ABSENT: visual disturbances Ears: ABSENT: hearing changes Nose, Mouth, and Throat: ABSENT: headache(s), mouth pain, sore throat Cardiovascular: ABSENT: chest pain, dyspnea on exertion, edema, orthropnea, palpitations Respiratory: ABSENT: cough, dyspnea Gastrointestinal: PRESENT: abdominal pain. ABSENT: constipation, diarrhea, nausea, vomiting Genitourinary: ABSENT: difficulty urinating, dysuria Musculoskeletal: ABSENT: back pain, muscle weakness Integumentary: ABSENT: diaphoresis, lesions Neurological: PRESENT: numbness, weakness. ABSENT: abnormal speech, dizziness, memory loss, syncope Psychiatric: ABSENT: anxiety, depression Endocrine: ABSENT: cold intolerance, heat intolerance Hematologic/Lymphatic: ABSENT: easy bleeding, easy bruising, lymphadenopathy Allergic/Immunologic: ABSENT: seasonal rhinorrhea Physical Exam Vital Signs: Temp Pulse Resp BP Pulse Ox 80 18 124/72 95 09/09/17 00:00 09/09/17 00:00 09/09/17 00:00 09/09/17 00:00 General appearance: PRESENT: no acute distress. ABSENT: hard of hearing Head exam: PRESENT: atraumatic, normocephalic Eye exam: PRESENT: conjunctiva pink. ABSENT: scleral icterus Mouth exam: PRESENT: moist, neck supple Neck exam: ABSENT: lymphadenopathy Respiratory exam: PRESENT: clear to auscultation [place], unlabored. ABSENT: rales , rhonchi, wheezes Cardiovascular exam: PRESENT: irregular rhythm. ABSENT: tachycardia Pulses: PRESENT: normal radial pulses Vascular exam: PRESENT: normal capillary refill GI/Abdominal exam: PRESENT: normal bowel sounds, soft, tenderness. ABSENT: distended, guarding, rigid Rectal exam: PRESENT: deferred Gentrourinary exam: ABSENT: indwelling catheter Extremities exam: ABSENT: pedal edema Musculoskeletal exam: PRESENT: normal inspection. ABSENT: deformity Neurological exam: PRESENT: alert, awake, oriented to person, oriented to place , oriented to situation, CN II-XII grossly intact Psychiatric exam: PRESENT: appropriate affect. ABSENT: anxious Skin exam: PRESENT: dry, intact, warm Results Impressions: Chest X-Ray 09/08/17 21:47 IMPRESSION: NO ACUTE RADIOGRAPHIC FINDING IN THE CHEST. Head CT 09/08/17 21:47 IMPRESSION: NORMAL BRAIN CT WITHOUT CONTRAST. EVIDENCE OF ACUTE STROKE: NO. Assessment & Plan - Diagnosis (1) CVA (cerebral vascular accident) Qualifiers: CVA mechanism: embolism Laterality of affected vessel: right Is this a current diagnosis for this admission?: Yes Plan: Patient has A. fib and is anticoagulated, she has evidence of right sided stroke with left arm weakness tingling and numbness. Her symptoms are resolving. The CT of her head was negative. I have ordered a carotid duplex to evaluate her carotid arteries as she is anticoagulated for the A. fib. Will order MRI of the brain, MRA of head and neck to further evaluate. Will work on diabetic control, blood pressure control in the next day or so. Tobacco cessation counseling was performed today. PT OT have been ordered. Bedside swallow eval has been ordered. (2) snf current use of anticoagulant therapy Is this a current diagnosis for this admission?: Yes Plan: Patient is on Eliquis 5 mg p.o. twice daily for stroke prophylaxis with A. fib. Despite this she has signs of a right-sided stroke with left-sided weakness. We will continue her Eliquis and her baby aspirin. Will look for other etiology of stroke in the meantime. (3) Pancreatitis Qualifiers: Chronicity: acute Pancreatitis type: other Acute pancreatitis complication: unspecified Qualified Code(s): K85.80 - Other acute pancreatitis without necrosis or infection Is this a current diagnosis for this admission?: Yes Plan: Patient states she has a history of pancreatitis. She does not drink alcohol. Check triglycerides. If pain becomes severe will consider ordering very low- dose Dilaudid but in the setting of stroke I am reluctant to do this now. Will keep patient n.p.o. and start IV fluids at a low rate. (4) Coronary artery disease Qualifiers: Coronary Disease-Associated Artery/Lesion type: [place] artery Is this a current diagnosis for this admission?: Yes Plan: Patient has a cardiac stent. Will restart her antihypertensives after a day or so of permissive hypertension. Patient is on her daily baby aspirin. She has nitroglycerin as needed at home. sHe is chest pain-free now. Will check cardiac enzymes in the setting of stroke. (5) Type 2 diabetes mellitus Is this a current diagnosis for this admission?: Yes Plan: Patient is on a sulfonylurea at home. We will start her on a diabetic diet and sliding scale insulin with short acting lispro and before meals at bedtime blood glucose checks. - Time Time Spent: 50 to 70 Minutes Smoking Cessation Education: 3 to 10 minutes Medications reviewed and adjusted accordingly: Yes - Inpatient Certification Based on my medical assessment, after consideration of the patient's comorbidities, presenting symptoms, or acuity I expect that the services needed warrant INPATIENT care.: Yes I certify that my determination is in accordance with my understanding of Medicare's requirements for reasonable and necessary INPATIENT services [42 CFR 412.3e].: Yes Medical Necessity: Need for Neurological Checks, Risk of Complication if Not Cared For in Hospital
[2017-09-09] MEDS ORDERED: NORMAL SALINE 1000 ML 1,000 ML IV PRN (02:48)
[2017-09-09 03:02] LABS: CREATINE KINASE MB 0.35 ng/mL (<4.55)
[2017-09-09 03:06] LABS: TROPONIN I < 0.012 ng/mL
[2017-09-09] MEDS ORDERED: INSULIN LISPRO 100 UNIT/ML 3 ML VIAL SUBCUT PRN (04:27)
--- NOTE | 2017-09-09 06:54 | EKG REPORT ---
SEVERITY:- ABNORMAL ECG - ATRIAL FIBRILLATION, V-RATE 71-142 NONSPECIFIC T ABNORMALITIES, DIFFUSE LEADS : Confirmed by: Iveth Aguirre MD 09-Sep-2017 06:53:20
[2017-09-09] MEDS ORDERED: HYDROMORPHONE HCL INJ/PF 2 MG/ML AMPULE IV ONE (07:10)
[2017-09-09 08:43] LABS: CREATINE KINASE MB 0.35 ng/mL (<4.55)
[2017-09-09 08:49] LABS: TROPONIN I < 0.012 ng/mL
[2017-09-09] MEDS: DIGOXIN 0.25 MG TABLET PO SCH (09:22)
[2017-09-09] MEDS: APIXABAN 5 MG TABLET PO SCH ×2 (09:22→17:28)
[2017-09-09] MEDS ORDERED: ASPIRIN 325 MG TABLET, ENT COATED PO SCH (10:00)
[2017-09-09] MEDS ORDERED: METOPROLOL SUCCINATE 25 MG PO SCH (10:30)
[2017-09-09] MEDS ORDERED: METOPROLOL SUCCINATE 25 MG TAB.SR.24H PO ONE (10:45)
--- NOTE | 2017-09-09 11:19 | RADIOLOGY REPORT (SQ) ---
EXAM DESCRIPTION: MRI HEAD WITHOUT COMPLETED DATE/TIME: 09/09/2017 10:33 am REASON FOR STUDY: CVA COMPARISON: CT brain 09/08/2017 TECHNIQUE: Multiplanar imaging includes non-contrasted T1, T2, FLAIR, and diffusion with ADC map seq uences. Images stored on PACS. LIMITATIONS: None. FINDINGS: ANATOMY: No anomalies. Normal vascular flow voids. Pituitary fossa normal. CSF SPACES: Normal in size and contour. No hemorrhage. CEREBRUM: Diffusion-weighted images are positive for a a acute nonhemorrhagic infarct in the right po sterior frontal deep periventricular white matter. Remainder of the study demonstrates multiple foci of increased FLAIR/ T2 signal in the bifrontal and biparietal deep and subcortical white matter, likely small vessel ischemic change. No acute intracranial hemorrhage, mass effect, or midline shift. POSTERIOR FOSSA: No signal alteration. No hemorrhage. No edema, masses or mass effect. Internal duong tory canals, cerebello-pontine angles, mastoids normal. DIFFUSION IMAGING: Positive for a small focus of abnormal diffusion in the right posterior frontal de ep periventricular white matter ORBITS: Post cataract surgery. No masses PARANASAL SINUSES: No fluid levels. Mucosa normal. OTHER: No other significant finding. IMPRESSION: Diffusion-weighted images are positive for a small lesion in the right posterior frontal deep periventricular white matter. This likely represents a small white matter infarct. Demyelinat ing disease is possible but considered less likely. Remainder of the study demonstrates multiple foci of increased FLAIR/ T2 signal in the bifrontal and biparietal deep and subcortical white matter, likely small vessel ischemic change. Demyelinating dis ease could mimic this appearance. EVIDENCE OF ACUTE STROKE: NO. TECHNICAL DOCUMENTATION: JOB ID: [id number] [employer]- All Rights Reserved Reading location - IP/workstation name: [email or web address]
[2017-09-09 11:23] LABS: LIPASE 1150.9 U/L (23-300); PHOSPHORUS 3.1 mg/dL (2.5-4.5)
[2017-09-09] MEDS: NORMAL SALINE 1000 ML 1,000 ML IV PRN (11:32)
[2017-09-09] MEDS: HYDROCODONE/ACETAMINOPHEN 5-325 MG TABLET PO PRN ×2 (11:35→20:40)
[2017-09-09] MEDS: INSULIN LISPRO 100 UNIT/ML 3 ML VIAL SUBCUT SCH ×2 (12:23→17:24)
--- NOTE | 2017-09-09 13:32 | RADIOLOGY REPORT (SQ) ---
EXAM DESCRIPTION: CAROTID DOPPLER COMPLETED DATE/TIME: 09/09/2017 1:07 pm REASON FOR STUDY: cva COMPARISON: CT brain 09/08/2017 MRI brain 09/09/2017 TECHNIQUE: Grayscale ultrasound, Doppler velocity and spectra, and color Doppler images acquired of the extra-cranial carotid and vertebral arteries. Images stored on PACS. LIMITATIONS: None. FINDINGS: RIGHT CAROTID CCA Velocities: Within normal limits. Mild right common carotid artery intimal thickening. ICA Velocities Peak systolic 0.81 m/s. End diastolic 0.28 m/s. Proximal ICA/CCA peak systolic ratio 1.4. There is mixed calcific and noncalcific plaque at the right carotid bifurcation partly shadowing the origin of the right ICA. Immediately distal to the shadowing plaque, right ICA velocities suggest ag ainst flow significant stenosis. LEFT CAROTID CCA Velocities: Within normal limits. Moderate left common carotid artery intimal thickening. ICA Velocities Peak systolic 1.0 m/s. End diastolic 0.17 m/s. Proximal ICA/CCA peak systolic ratio 0.8. There is noncalcific plaque at the left carotid bifurcation. No flow significant stenosis. VERTEBRAL ARTERIES: Antegrade flow. Normal waveforms. SUBCLAVIAN ARTERIES: Not evaluated OTHER: No other significant finding. IMPRESSION: NO HEMODYNAMICALLY SIGNIFICANT STENOSIS. COMMENT: Quality ID #[id number]: Velocity criteria are extrapolated from the diameter data as defined by t he Society of Radiologists in Ultrasound Consensus Conference. Radiology 2003: 229; 340-346. TECHNICAL DOCUMENTATION: JOB ID: [id number] [employer]- All Rights Reserved Reading location - IP/workstation name: [email or web address]
[2017-09-09] MEDS ORDERED: PANTOPRAZOLE SODIUM 40 MG VIAL IV ONE (15:15)
--- NOTE | 2017-09-09 17:39 | PDOC PROGRESS REPORT ---
Subjective Progress Note for:: 09/09/17 Subjective:: The patient is a 67-year-old female with past medical history of67 yr old female with PMH of Afib on digoxin and anticoagulation with Eliquis. [place], [place] in 2014 Hypertension Hyperlipidemia CHF Peripheral neuropathy Diabetes History of pancreatitis Tobacco dependence The patient presented to the hospital on September 08 with acute onset left-sided facial droop left arm numbness, and also reported some epigastric abdominal pain. In the emergency room she was noted to have left upper extremity weakness. CAT scan of the head did not show any acute changes. She complained of epigastric abdominal pain and was found to have a lipase level of 800. Reason For Visit: TIA Physical Exam Vital Signs: Temp Pulse Resp BP Pulse Ox 98.1 F 75 16 122/67 95 09/09/17 08:15 09/09/17 08:15 09/09/17 08:15 09/09/17 08:15 09/09/17 08:15 Intake & Output 09/08/17 09/09/17 09/10/17 06:59 06:59 06:59 Intake Total 25 Balance 25 Weight 88.9 kg General appearance: PRESENT: no acute distress Head exam: PRESENT: normocephalic Mouth exam: PRESENT: moist Neck exam: ABSENT: tracheal deviation Respiratory exam: PRESENT: symmetrical. ABSENT: wheezes Cardiovascular exam: PRESENT: RRR GI/Abdominal exam: PRESENT: normal bowel sounds, soft, tenderness - epigastric Rectal exam: PRESENT: deferred Extremities exam: ABSENT: pedal edema Neurological exam: PRESENT: alert, awake, oriented to person, oriented to place , oriented to time, oriented to situation, other - No focal weakness, speech is normal, no facial droop Psychiatric exam: PRESENT: appropriate affect Results Laboratory Results: 09/09/17 09/09/17 09/09/17 01:56 01:56 08:06 Creatine Kinase 23 L 30 CK-MB (CK-2) 0.35 Troponin I < 0.012 09/09/17 08:06 Creatine Kinase CK-MB (CK-2) 0.35 Troponin I < 0.012 Impressions: Chest X-Ray 09/08/17 21:47 IMPRESSION: NO ACUTE RADIOGRAPHIC FINDING IN THE CHEST. Head CT 09/08/17 21:47 IMPRESSION: NORMAL BRAIN CT WITHOUT CONTRAST. EVIDENCE OF ACUTE STROKE: NO. Assessment & Plan - Diagnosis (1) TIA (transient ischemic attack) Is this a current diagnosis for this admission?: Yes Plan: Continue Aspirin and Eliquis (2) Coronary artery disease Qualifiers: Coronary Disease-Associated Artery/Lesion type: [place] artery Is this a current diagnosis for this admission?: Yes (3) Elevated lipase Is this a current diagnosis for this admission?: Yes Plan: Secondary to mild pancreatitis. pain control, bowel rest (4) Type 2 diabetes mellitus Is this a current diagnosis for this admission?: Yes Plan: Insulin sliding scale (5) Abdominal pain Qualifiers: Abdominal location: periumbilical Qualified Code(s): R10.33 - Periumbilical pain Is this a current diagnosis for this admission?: Yes Plan: As above (6) senior living current use of anticoagulant therapy Is this a current diagnosis for this admission?: Yes Plan: On Eliquis for Afib (7) Hyperlipidemia Is this a current diagnosis for this admission?: Yes Plan: Simvastatin (8) Personal history of malignant neoplasm of uterus Is this a current diagnosis for this admission?: Yes (9) Chronic atrial fibrillation Is this a current diagnosis for this admission?: Yes Plan: On Digoxin, Aspirin and Eliquis - Time Time Spent with patient: 35 or more minutes
[2017-09-09] MEDS ORDERED: ASPIRIN 81 MG TABLET, ENT COATED PO SCH (22:00)
[2017-09-09] MEDS ORDERED: SIMVASTATIN 40 MG TABLET PO SCH (22:00)
[2017-09-10] MEDS: NORMAL SALINE 1000 ML 1,000 ML IV PRN (00:08)
[2017-09-10 06:28] LABS: ANION GAP 9 (5-19); BLOOD UREA NITROGEN 14 mg/dL (7-20); CALCIUM 8.5 mg/dL (8.4-10.2); CARBON DIOXIDE 25 mmol/L (22-30); CHLORIDE 108 mmol/L (98-107); CHOLESTEROL 145.31 mg/dL (0-200); GLUCOSE 196 mg/dL (75-110); LIPASE 651.5 U/L (23-300); PHOSPHORUS 3.2 mg/dL (2.5-4.5); POTASSIUM 4.4 mmol/L (3.6-5.0); SODIUM 142.2 mmol/L (137-145); TRIGLYCERIDES 224 mg/dL (<150)
[2017-09-10 06:39] LABS: DIRECT LDL 84 mg/dL (<100)
[2017-09-10 06:40] LABS: VLDL CHOLESTEROL 44.8 mg/dL (10-31)
--- NOTE | 2017-09-10 07:31 | EKG REPORT ---
SEVERITY:- ABNORMAL ECG - ATRIAL FIBRILLATION, V-RATE 65-115 LOW VOLTAGE IN FRONTAL LEADS BORDERLINE R WAVE PROGRESSION, ANTERIOR LEADS NONSPECIFIC T ABNORMALITIES, INFERIOR LEADS : Confirmed by: Samuel Fox MD 10-Sep-2017 07:31:05
[2017-09-10] MEDS: INSULIN LISPRO 100 UNIT/ML 3 ML VIAL SUBCUT SCH ×3 (08:33→16:51)
[2017-09-10] MEDS ORDERED: METOPROLOL SUCCINATE 25 MG TAB.SR.24H PO SCH (10:00)
[2017-09-10] MEDS ORDERED: ASPIRIN 81 MG TABLET, ENT COATED PO SCH (10:00)
[2017-09-10] MEDS ORDERED: PANTOPRAZOLE SODIUM 40 MG VIAL IV SCH (10:00)
[2017-09-10] MEDS ORDERED: MAGNESIUM CITRATE 296 ML BOTTLE PO ONE (10:15)
[2017-09-10] MEDS ORDERED: BISACODYL 5 MG TABEC PO ONE (10:15)
[2017-09-10] MEDS: APIXABAN 5 MG TABLET PO SCH (11:09)
[2017-09-10] MEDS: DIGOXIN 0.25 MG TABLET PO SCH (11:09)
--- NOTE | 2017-09-10 11:25 | Physician Advisory Note ---
Physician Advisor ProgressNote .: Pursuant to the plan for [facility], I have reviewed the medical record for this patient. Physician Advisor Statement: Please consider documenting, if you agree, in each note: 1. "Chronic systolic CHF" - EF was 25-30% on ECHO 05/2015 2. "small acute CVA Rt posterior frontal deep PVWM ..." - Did she have temporary "Lt hemiparesis", or just Lt arm weakness? (Per H& P, she was tripping on things & may have had facial droop per family.) - Which is her dominant hand? - Was there "cerebral infarction likely from thrombosis"? - or embolism?, or occlusion? Status: agree w/Inpt in this 67yo Medicare pt with small acute CVA w/sx mostly resolved, acute pancreatitis w/continued singificant pain 09/09/ PM, underlying chronic systolic CHF, chronic Afib, insufficiently controlled DM2, HTN, HLD, CAD w/ previous [place] & stent, ongoing tobacco abuse/dependence, prior pancreatitis , needing care w/IVF given underlying CHF etc.... Thanks! CK
--- NOTE | 2017-09-10 12:03 | PDOC DISCHARGE SUMMARY ---
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 Is this a current diagnosis for this admission?: Yes (7) Hyperlipidemia Is this a current diagnosis for this admission?: Yes (8) Personal history of malignant neoplasm of uterus Is this a current diagnosis for this admission?: Yes (9) Chronic atrial fibrillation Is this a current diagnosis for this admission?: Yes (10) Chronic systolic (congestive) heart failure Is this a current diagnosis for this admission?: Yes - Additional Information Resuscitation Status: Full Code Discharge Diet: Diabetic, Other (Comments) - low fat diet Discharge Activity: Activity As Tolerated Prescriptions: Simvastatin [Zocor 40 mg Tablet] 10 mg PO QHS 30 Days #30 tablet Lipase/Protease/Amylase [[place]cre[place]-10 Capsule.] 1 cap PO ACHS 30 Days #120 capsule.dr Metoprolol Succinate [Toprol Xl 25 mg Tab.sr] 50 mg PO DAILY 30 Days #30 tab.sr.24h Home Medications: Digoxin [Lanoxin 0.25 mg Tablet] 0.25 mg PO DAILY 07/07/11 Aspirin [Aspirin EC] 81 mg PO DAILY 01/20/15 Nitroglycerin [Nitrostat 0.4 mg (1/150 Gr) Tabs 25/Bottle] 1 tab SL Q5MP PRN 02/22 Furosemide [Lasix 40 mg Tablet] 40 mg PO QAM #30 tablet 12/15/15 Sacubitril/Valsartan [Entresto 24 mg-26 mg Tablet] 1 each PO BID 12/07/16 Glimepiride [Amaryl] 2 mg PO DAILY 09/09/17 Apixaban [Eliquis 5 mg Tablet] 5 mg PO BID tablet 09/10/17 Hydrocodone/Acetaminophen [[place] 5-325 mg Tablet] 1 tab PO Q8HP PRN tablet 05/26 Lipase/Protease/Amylase [[place]cre[place]-10 Capsule.] 1 cap PO ACHS 30 Days #120 capsule. 09/10/17 Metoprolol Succinate [Toprol Xl 25 mg Tab.sr] 50 mg PO DAILY 30 Days #30 tab.sr.24h 09/10/17 Simvastatin [Zocor 40 mg Tablet] 10 mg PO QHS 30 Days #30 tablet 09/10/17 History of Present Illness History of Present Illness: The patient is a 67-year-old female with past medical history of67 yr old female with PMH of Afib on digoxin and anticoagulation with Eliquis. [place], [place] in 2014 Hypertension Hyperlipidemia CHF Peripheral neuropathy Diabetes History of pancreatitis Tobacco dependence The patient presented to the hospital on September 08 with acute onset left-sided facial droop left arm numbness, and also reported some epigastric abdominal pain. In the emergency room she was noted to have left upper extremity weakness. CAT scan of the head did not show any acute changes. She complained of epigastric abdominal pain and was found to have a lipase level of 800, and was given IV fluids and analgesics and Pancreatic enzymes. Was initially n.p.o., diet was slowly advanced which she has tolerated well. MRI of the brain showed no acute infarct. She likely had a TIA. The patient is doing well and is stable for discharge. Lipase level has gone down to 651. She is to follow-up with her primary care physician in 1 week. Systolic blood pressure was running in the 110s-120s despite being on only 25 mg of Toprol-XL. Her home Toprol dose of 100 was cut down to 50 mg. She was also given a prescription for pancreatic enzyme and simvastatin. Triglycerides were 224, total cholesterol 145, LDL 84, HDL 24 Hospital Course Hospital Course: As above. Physical Exam Vital Signs: Temp Pulse Resp BP Pulse Ox 97.6 F 84 18 136/76 H 97 09/10/17 08:05 09/10/17 08:05 09/10/17 08:05 09/10/17 08:05 09/10/17 08:05 Intake & Output 09/09/17 09/10/17 09/11/17 06:59 06:59 06:59 Intake Total 2258 Output Total 0 Balance 2258 Weight 91 kg General appearance: PRESENT: no acute distress Head exam: PRESENT: normocephalic Respiratory exam: PRESENT: symmetrical, unlabored GI/Abdominal exam: PRESENT: normal bowel sounds, soft. ABSENT: tenderness Rectal exam: PRESENT: deferred Neurological exam: PRESENT: alert, awake, oriented to person, oriented to place , oriented to time, oriented to situation - No focal neurologic deficits., other Psychiatric exam: PRESENT: appropriate affect Results Laboratory Results: 09/10/17 05:43 09/10/17 05:43 Sodium 142.2 Potassium 4.4 Chloride 108 H Carbon Dioxide 25 Anion Gap 9 BUN 14 Creatinine 0.74 Est GFR ( Amer) > 60 Est GFR (Non-Af Amer) > 60 Glucose 196 H Calcium 8.5 Phosphorus 3.2 Magnesium 1.8 Triglycerides 224 H Cholesterol 145.31 LDL Cholesterol Direct 84 VLDL Cholesterol 44.8 H HDL Cholesterol 24 L Lipase 651.5 H Impressions: Chest X-Ray 09/08/17 21:47 IMPRESSION: NO ACUTE RADIOGRAPHIC FINDING IN THE CHEST. Head CT 09/08/17 21:47 IMPRESSION: NORMAL BRAIN CT WITHOUT CONTRAST. EVIDENCE OF ACUTE STROKE: NO. Carotid Doppler Study 09/09/17 00:00 IMPRESSION: NO HEMODYNAMICALLY SIGNIFICANT STENOSIS. Head MRI 09/09/17 00:00 IMPRESSION: Diffusion-weighted images are positive for a small lesion in the right posterior frontal deep periventricular white matter. This likely represents a small white matter infarct. Demyelinating disease is possible but considered less likely. Remainder of the study demonstrates multiple foci of increased FLAIR/ T2 signal in the bifrontal and biparietal deep and subcortical white matter, likely small vessel ischemic change. Demyelinating disease could mimic this appearance. EVIDENCE OF ACUTE STROKE: NO. Qualifiers - * PATIENT BEING DISCHARGED WITH ANY OF THE FOLLOWING DIAGNOSIS: No Plan Time Spent: Greater than 30 Minutes
[2017-09-10] MEDS ORDERED: LIPASE/PROTEASE/AMYLASE 1 CAP CAPSULE.DR PO SCH (16:00)
[2017-09-10 16:32] VITALS: BP 120/66
== END 2017-09-10 18:32 | disposition home or self-care (01) | DRG 69 ==
LOC: ER 21:34 → EH 09-09 00:48 → UNDOADMOB 09-09 00:48 → EH 09-09 04:40 → 3W 09-09 04:40 → OBSVTOIN 09-09 10:05
PROVIDERS: ADMIT Internal Medicine; ATTEND Internal Medicine
DX: G45.9 Transient cerebral ischemic attack, unspecified (principal); I50.22 Chronic systolic (congestive) heart failure; I11.0 Hypertensive heart disease with heart failure; E78.5 Hyperlipidemia, unspecified; E11.65 Type 2 diabetes mellitus with hyperglycemia; R74.8 Abnormal levels of other serum enzymes; E11.40 Type 2 diabetes mellitus with diabetic neuropathy, unspecified; R29.810 Facial weakness; F17.210 Nicotine dependence, cigarettes, uncomplicated; R20.0 Anesthesia of skin; I25.10 Atherosclerotic heart disease of native coronary artery without angina pectoris; I48.2 Chronic atrial fibrillation; R10.9 Unspecified abdominal pain; Z79.4 Long term (current) use of insulin; Z90.49 Acquired absence of other specified parts of digestive tract; Z95.5 Presence of coronary angioplasty implant and graft; Z79.02 Long term (current) use of antithrombotics/antiplatelets; Z79.82 Long term (current) use of aspirin; Z82.49 Family history of ischemic heart disease and other diseases of the circulatory system; Z88.0 Allergy status to penicillin; Z85.42 Personal history of malignant neoplasm of other parts of uterus; Z87.19 Personal history of other diseases of the digestive system
CPT/HCPCS: 36415; 70450; 70551; 71045; 80048; 80053; 80061; 80162; 81001; 82550; 82553; 82962; 83036; 83690; 83735; 84100; 84484; 85025; 85610; 85730; 93005; 93010; 93880; 99285; G0378; G8978-GP; G8979-GP; G8980-GP; G8987-GO; G8988-GO; G8989-GO; G8996-GN; G8997-GN; G8998-GN; J1170; J3490; J7030; S0164

== ENCOUNTER 2019-04-03 20:10 | Observation (INO) | payer MEDICARE, MEDICAID ==
[2019-04-03] MEDS ORDERED: ONDANSETRON HCL INJ/PF 4 MG/2 ML SDV IV ONE (20:52)
[2019-04-03] MEDS ORDERED: IPRATROPIUM/ALBUTEROL 0.5-2.5 MG/3 ML AMPUL NEB ONE (20:53)
--- NOTE | 2019-04-03 20:53 | ER Document Report ---
ED Medical Screen (RME) - General Chief Complaint: Chest Pain Stated Complaint: CHEST PAIN Time Seen by Provider: 04/03/19 20:48 Primary Care Provider: KACI NINA MD [Primary Care Provider] - Follow up as needed Information source: Patient Notes: Patient presents complaining of chest pain that started this afternoon. Patient reports nausea and vomiting x8 episodes today. Patient does report chronic cough and dizziness. Patient does have a history of A. fib, diabetes and CHF. Patient does take Eliquis. I have greeted and performed a rapid initial assessment of this patient. A comprehensive ED assessment and evaluation of the patient, analysis of test results and completion of the medical decision making process will be conducted by additional ED providers. TRAVEL OUTSIDE OF THE [place] IN LAST 30 DAYS: No - Related Data Allergies/Adverse Reactions: Penicillins Allergy (Severe, Verified 09/19/18 09:51) Hives Past Medical History - Past Medical History Cardiac Medical History: Reports: Hx Atrial Fibrillation, Hx Congestive Heart Failure, Hx Coronary Artery Disease, Hx Heart Attack - OCT 2013, Hx Hypercholesterolemia, Hx Hypertension Pulmonary Medical History: Denies: Hx Asthma, Hx Bronchitis, Hx COPD, Hx Pneumonia Neurological Medical History: Denies: Hx Cerebrovascular Accident, Hx Seizures Endocrine Medical History: Reports: Hx Diabetes Mellitus Type 2 Renal/ Medical History: Reports: Hx Kidney Stones. Denies: Hx Peritoneal Dialysis GI Medical History: Denies: Hx Hepatitis, Hx Hiatal Hernia, Hx Ulcer Musculoskeltal Medical History: Denies Hx Arthritis Psychiatric Medical History: Denies: Hx Depression Infectious Medical History: Denies: Hx Hepatitis Past Surgical History: Reports: Hx Cardiac Catheterization, Hx Cardiac Surgery - stent placement, Hx Cholecystectomy, Hx Coronary Stent, Hx Hysterectomy, Hx Tubal Ligation. Denies: Hx Mastectomy, Hx Open Heart Surgery, Hx Pacemaker - Immunizations Immunizations up to date: Yes Hx Diphtheria, Pertussis, Tetanus Vaccination: Yes Physical Exam - Vital signs Vitals: Temp Pulse Resp BP Pulse Ox 98.1 F 83 22 H 120/62 95 04/03/19 20:30 04/03/19 20:30 04/03/19 20:30 04/03/19 20:30 04/03/19 20:30 - Respiratory Respiratory status: No respiratory distress Breath sounds: Nonproductive cough, Wheezing - Faint scattered - Cardiovascular Rhythm: Irregularly irregular Heart sounds: S1 appreciated, S2 appreciated Course - Vital Signs Vital signs: Temp Pulse Resp BP Pulse Ox 98.1 F 83 22 H 120/62 95 04/03/19 20:30 04/03/19 20:30 04/03/19 20:30 04/03/19 20:30 04/03/19 20:30 Doctor's Discharge - Discharge Referrals: KACI NINA MD [Primary Care Provider] - Follow up as needed
[2019-04-03 21:17] LABS: ABSOLUTE BASOPHILS # (AUTO) 0.1 10^3/uL (0.0-0.2); ABSOLUTE EOSINOPHILS # (AUTO) 0.2 10^3/uL (0.0-0.6); ABSOLUTE LYMPHOCYTES (AUTO) 1.7 10^3/uL (0.5-4.7); ABSOLUTE MONOCYTES (AUTO) 0.4 10^3/uL (0.1-1.4); ABSOLUTE NEUT (AUTO) 10.2 10^3/uL (1.7-8.2); BASOPHILS % (AUTO) 0.9 % (0-2); EOSINOPHILS % (AUTO) 1.5 % (0-6); HEMATOCRIT 32.5 % (36.0-47.0); HEMOGLOBIN 10.7 g/dL (12.0-15.5); LYMPHOCYTES % (AUTO) 13.4 % (13-45); MEAN CORPUSCULAR HEMOGLOBIN 29.1 pg (27.0-33.4); MEAN CORPUSCULAR VOLUME 88 fl (80-97); MONOCYTES % (AUTO) 3.2 % (3-13); PLATELET COUNT 184 10^3/uL (150-450); RED BLOOD COUNT 3.69 10^6/uL (3.72-5.28); TOTAL CELLS COUNTED % (AUTO) 100 %; WHITE BLOOD COUNT 12.6 10^3/uL (4.0-10.5)
[2019-04-03 21:34] LABS: ALBUMIN 3.9 g/dL (3.5-5.0); ALKALINE PHOSPHATASE 82 U/L (38-126); ANION GAP 8 (5-19); ASPARTATE AMINO TRANSFERASE 20 U/L (14-36); BILIRUBIN,TOTAL 0.5 mg/dL (0.2-1.3); BLOOD UREA NITROGEN 33 mg/dL (7-20); CALCIUM 9.4 mg/dL (8.4-10.2); CARBON DIOXIDE 29 mmol/L (22-30); CHLORIDE 101 mmol/L (98-107); GLUCOSE 184 mg/dL (75-110); POTASSIUM 5.5 mmol/L (3.6-5.0); TOTAL PROTEIN 7.5 g/dL (6.3-8.2)
[2019-04-03 21:45] LABS: NT PRO BNP 3310 pg/mL (<125)
[2019-04-03 21:49] LABS: TROPONIN I < 0.012 ng/mL
--- NOTE | 2019-04-03 22:15 | RADIOLOGY REPORT (SQ) ---
EXAM DESCRIPTION: XR CHEST 2 VIEWS COMPLETED DATE/TME: 04/03/2019 20:52 CLINICAL HISTORY: 69 years, Female, cp COMPARISON: None. NUMBER OF VIEWS: 2 TECHNIQUE: 2 views of the chest LIMITATIONS: None. FINDINGS: The heart size is normal. There is minor right apical pleural thickening. Lungs are otherwise clear. No pneumothorax IMPRESSION: No acute cardiopulmonary process copyright 2010 [employer]- All Rights Reserved
[2019-04-04] MEDS ORDERED: ASPIRIN 81 MG TABLET, CHEWABLE PO ONE (00:44)
[2019-04-04] MEDS ORDERED: NITROGLYCERIN 2% OINTMENT 1 GM PACKET TP ONE (00:45)
--- NOTE | 2019-04-04 01:11 | ER Document Report ---
Entered by JANELLE BUSTAMANTE SCRIBE 04/04/19 0026 Acting as scribe for:ERI BRYAN IV, MD ED General - General Chief Complaint: Chest Pain Stated Complaint: CHEST PAIN Time Seen by Provider: 04/03/19 20:48 Primary Care Provider: KACI NINA MD [Primary Care Provider] - Follow up as needed Mode of Arrival: Ambulatory Information source: Patient Notes: This 69 year old female patient with a history of A fib on Eliquis and a DC x5 y ears ago presents to the ED today with complaints of chest pain in the sternal region that started yesterday afternoon. Patient states that she feels the pain when she is laying down. Patient reports nausea, vomiting x8, productive cough for the past x1.5 week, and dizziness. Patient notes that she brings up light green/yellow or clear sputum when she coughs. TRAVEL OUTSIDE OF THE [place] IN LAST 30 DAYS: No - Related Data Allergies/Adverse Reactions: Penicillins Allergy (Severe, Verified 09/19/18 09:51) Hives Home Medications: Eliquis Past Medical History - General Information source: Patient - Social History Smoking Status: Current Every Day Smoker Family History: Reviewed & Not Pertinent, CAD - Both parents of complications of coronary artery disease with CHF Patient has suicidal ideation: No Patient has homicidal ideation: No - Past Medical History Cardiac Medical History: Reports: Hx Atrial Fibrillation, Hx Congestive Heart Failure, Hx Coronary Artery Disease, Hx Heart Attack - OCT 2013, Hx Hypercholesterolemia, Hx Hypertension Endocrine Medical History: Reports: Hx Diabetes Mellitus Type 2 Renal/ Medical History: Reports: Hx Kidney Stones Past Surgical History: Reports: Hx Cardiac Catheterization, Hx Cholecystectomy, Hx Coronary Stent, Hx Hysterectomy, Hx Tubal Ligation - Immunizations Immunizations up to date: Yes Hx Diphtheria, Pertussis, Tetanus Vaccination: Yes Review of Systems - Review of Systems Constitutional: No symptoms reported EENT: No symptoms reported Cardiovascular: See HPI, Chest pain, Dizziness Respiratory: See HPI, Cough Gastrointestinal: See HPI, Nausea, Vomiting Genitourinary: No symptoms reported Female Genitourinary: No symptoms reported Musculoskeletal: See HPI, Leg swelling Skin: No symptoms reported Hematologic/Lymphatic: No symptoms reported Neurological/Psychological: No symptoms reported -: Yes All other systems reviewed and negative Physical Exam - Vital signs Vitals: Temp Pulse Resp BP Pulse Ox 98.1 F 83 22 H 120/62 95 04/03/19 20:30 04/03/19 20:30 04/03/19 20:30 04/03/19 20:30 04/03/19 20:30 - General General appearance: Alert - HEENT Head: Normocephalic, Atraumatic Eyes: Normal Pupils: PERRL - Respiratory Respiratory status: No respiratory distress Chest status: Nontender Breath sounds: Normal Chest palpation: Normal - Cardiovascular Rhythm: Regular Heart sounds: Normal auscultation Murmur: No - Abdominal Inspection: Normal Distension: No distension Bowel sounds: Normal Tenderness: Nontender Organomegaly: No organomegaly - Back Back: Normal, Nontender - Extremities General upper extremity: Normal inspection General lower extremity: Normal inspection - Neurological Neuro grossly intact: Yes - Psychological Associated symptoms: Normal affect, Normal mood - Skin Skin Temperature: Warm Skin Moisture: Dry Skin Color: Normal Course - Vital Signs Vital signs: Temp Pulse Resp BP Pulse Ox 98.1 F 83 22 H 120/62 98 04/03/19 20:30 04/03/19 20:30 04/03/19 20:30 04/03/19 20:30 04/04/19 00:27 - Laboratory Result Diagrams: 04/03/19 21:05 04/03/19 21:05 Laboratory results interpreted by me: 04/03/19 04/03/19 04/03/19 21:05 21:05 21:05 WBC 12.6 H RBC 3.69 L Hgb 10.7 L Hct 32.5 L RDW 16.0 H Absolute Neuts (auto) 10.2 H Seg Neutrophils % 81.0 H Potassium 5.5 H BUN 33 H Creatinine 1.68 H Est GFR ( Amer) 37 L Est GFR (MDRD) Non-Af 30 L Glucose 184 H NT-Pro-B Natriuret Pep 3310 H Discharge - Discharge Clinical Impression: Chest pain Qualifiers: Chest pain type: unspecified Qualified Code(s): R07.9 - Chest pain, unspecified Condition: Good Disposition: ADMITTED OBSERVATION Admitting Provider: Kenrick (Hospitalist) Unit Admitted: Telemetry Referrals: KACI NINA MD [Primary Care Provider] - Follow up as needed I personally performed the services described in the documentation, reviewed and edited the documentation which was dictated to the scribe in my presence, and it accurately records my words and actions.
[2019-04-04] MEDS ORDERED: MORPHINE SULFATE 10 MG/ML INJ IV PRN ×3 (02:40)
[2019-04-04] MEDS ORDERED: LEVALBUTEROL HCL NEB 0.63 MG/3 ML AMPUL NEB PRN (02:40)
[2019-04-04] MEDS ORDERED: ACETAMINOPHEN 650 MG SUPP.RECT PR PRN (02:40)
[2019-04-04] MEDS ORDERED: MAG HYDROX/AL HYDROX/SIMETH SUSP 30 ML UDCUP PO PRN (02:40)
[2019-04-04] MEDS ORDERED: NICOTINE 21 MG/24 HR PATCH.TD24 TD PRN (02:40)
[2019-04-04] MEDS ORDERED: MELATONIN 5 MG TABLET PO PRN ×2 (02:40→03:30)
[2019-04-04] MEDS ORDERED: LORAZEPAM INJ 2 MG/1 ML VIAL IV PRN (02:40)
[2019-04-04] MEDS ORDERED: GUAIFENESIN SYRP 200 MG/10 ML UDC PO PRN (02:40)
[2019-04-04] MEDS ORDERED: PROMETHAZINE HCL INJ 25 MG/1 ML VIAL IV PRN (02:40)
[2019-04-04] MEDS ORDERED: MAGNESIUM HYDROXIDE SUSP 30 ML UDCUP PO PRN (02:40)
[2019-04-04] MEDS ORDERED: DEXTROSE 50%-WATER 25 GM/50 ML DISP.SYRIN IV PRN ×2 (02:50)
[2019-04-04] MEDS ORDERED: GLUCAGON,HUMAN RECOMB 1 MG INJ IM PRN (02:50)
[2019-04-04] MEDS ORDERED: DEXTROSE 40% GEL 15 GM TUBE PO PRN ×2 (02:50)
[2019-04-04] MEDS: RINGERS SOLUTION,LACTATED 1,000 ML IV PRN ×2 (04:15→11:20)
--- NOTE | 2019-04-04 04:24 | PDOC H&P ---
History of Present Illness Admission Date/PCP: 04/04/2019 02:01 KACI NINA MD Patient complains of: Chest pain History of Present Illness: CHRISTINA VIVEROS is a 69 year old female who presented to the emergency room with a 1 day history of chest pain. She admits onset of chest pain beginning on the afternoon of 04/02/2019 persisting overnight and being present during her emergency room visit. Her chest pain is a continuous moderate pressure in the substernal region with radiation to the left shoulder. Her chest pain is worsened by lying flat and has been accompanied by 1 episode of diarrhea and numerous episodes of nausea with vomiting since its onset. Her chest pain is associated with a cough productive of small amounts of yellowish to green mucus and dizziness which has been present for 10 days or more. She denies other associated or accompanying signs and symptoms. In the emergency room she was found to have cardiac enzymes which were in the normal range and EKG showed no evidence of myocardial ischemia or injury. Patient was subsequently admitted to hospital on observation status for further evaluation and treatment. Past Medical History Cardiac Medical History: Reports: Atrial Fibrillation - Chronic, Congestive Heart Failure - Chronic systolic congestive heart failure, Coronary Artery Disease, Myocardial Infarction - OCT 2013, Hyperlipidema, Hypertension Pulmonary Medical History: Denies: Asthma, Bronchitis, Chronic Obstructive Pulmonary Disease (COPD), Pneumonia EENT Medical History: Denies: Cataracts, Ears - Hearing aids Neurological Medical History: Reports: Other - TIA Denies: Hemorrhagic CVA, Ischemic CVA, Seizures Endocrine Medical History: Reports: Diabetes Mellitus Type 2 Denies: Diabetes Mellitus Type 1, Hyperthyroidism, Hypothyroidism Renal/ Medical History: Denies: Chronic Kidney Disease, Nephrolithiasis Malignancy Medical History: Reports: Other - Uterine cancer GI Medical History: Denies: Cirrhosis, Crohn's Disease, Gastroesophageal Reflux Disease, Hepatitis, Hiatal Hernia, Peptic Ulcer Disease, Ulcerative Colitis Musculoskeltal Medical History: Denies: Arthritis, Gout Skin Medical History: Denies: Eczema, Psoriasis Psychiatric Medical History: Denies: Alcohol Dependency, Depression, Substance Abuse, Tobacco Dependency Traumatic Medical History: Reports: None Hematology: Denies: Anemia, Bleeding Tendencies Infectious Medical History: Reports: None Past Surgical History Past Surgical History: Reports: Cardiac Catheterization, Cholecystectomy, Coronary Stent, Hysterectomy, Tubal Ligation Social History Information Source: Patient Lives with: Family Smoking Status: Current Every Day Smoker Electronic Cigarette use?: No Frequency of Alcohol Use: None Hx Recreational Drug Use: No Drugs: None Hx Prescription Drug Abuse: No - Advance Directive Resuscitation Status: Full Code Surrogate healthcare decision maker:: Emily Purcell Family History Family History: CAD - Both parents of complications of coronary artery disease with CHF, Hypertension, Other - Congestive heart failure. denies: DM, Malignancy Parental Family History Reviewed: Yes Children Family History Reviewed: No Sibling(s) Family History Reviewed.: Yes Medication/Allergy Home Medications: Digoxin [Lanoxin 0.25 mg Tablet] 0.25 mg PO DAILY 07/07/11 Aspirin [Aspirin EC] 81 mg PO DAILY 01/20/15 Nitroglycerin [Nitrostat 0.4 mg (1/150 Gr) Tabs 25/Bottle] 1 tab SL Q5MP PRN 01/20/15 Sacubitril/Valsartan [Entresto 24 mg-26 mg Tablet] 1 each PO BID 12/07/16 Glimepiride [Amaryl] 2 mg PO DAILY 09/09/17 Apixaban [Eliquis 5 mg Tablet] 5 mg PO BID tablet 09/10/17 Metoprolol Succinate [Toprol Xl 25 mg Tab.sr] 50 mg PO DAILY 30 Days #30 tab.sr.24h 09/10/17 Furosemide [Lasix 40 mg Tablet] 80 mg PO BID 04/04/19 Allergies/Adverse Reactions: Penicillins Allergy (Severe, Verified 09/19/18 09:51) Hives Review of Systems Constitutional: ABSENT: chills, fever(s) Eyes: ABSENT: visual disturbances, other - Eye pain Ears: ABSENT: hearing changes, other - Ear pain Nose, Mouth, and Throat: ABSENT: headache(s), mouth pain, sore throat Cardiovascular: PRESENT: as per HPI, chest pain. ABSENT: dyspnea on exertion, edema, orthropnea, palpitations Respiratory: PRESENT: as per HPI, cough, sputum. ABSENT: dyspnea, hemoptysis Gastrointestinal: PRESENT: as per HPI, diarrhea, nausea, vomiting. ABSENT: abdominal pain, constipation Genitourinary: ABSENT: difficulty urinating, dysuria, hematuria Musculoskeletal: ABSENT: deformity, joint swelling Integumentary: ABSENT: pruritus, rash Neurological: PRESENT: as per HPI, dizziness. ABSENT: confusion, convulsions, focal weakness, memory loss, syncope Psychiatric: ABSENT: anxiety, depression Endocrine: ABSENT: cold intolerance, heat intolerance, polydipsia, polyphagia, polyuria Hematologic/Lymphatic: ABSENT: easy bleeding, easy bruising Allergic/Immunologic: ABSENT: seasonal rhinorrhea Physical Exam Vital Signs: Temp Pulse Resp BP Pulse Ox 98.1 F 83 22 H 120/62 98 04/03/19 20:30 04/03/19 20:30 04/03/19 20:30 04/03/19 20:30 04/04/19 00:27 Intake & Output 04/02/19 04/03/19 04/04/19 23:59 23:59 23:59 Weight 88.451 kg General appearance: PRESENT: no acute distress, cooperative Head exam: PRESENT: atraumatic, normocephalic Eye exam: PRESENT: conjunctiva pink. ABSENT: conjunctival injection, scleral icterus Ear exam: PRESENT: normal external ear exam. ABSENT: bleeding, drainage Mouth exam: PRESENT: dry mucosa, neck supple Neck exam: ABSENT: thyromegaly, tracheal deviation Respiratory exam: PRESENT: prolonged expiratory phas - Minimally prolonged expiratory phase throughout all lung [place], rhonchi - Scattered rhonchi bilaterally or with cough, symmetrical, wheezes - Mild end expiratory wheezes all lung [place] Cardiovascular exam: PRESENT: irregular rhythm - Irregularly irregular rate and rhythm. ABSENT: clicks, gallop, rubs Pulses: PRESENT: normal radial pulses, normal dorsalis pedis pul Vascular exam: PRESENT: normal capillary refill. ABSENT: pallor GI/Abdominal exam: PRESENT: normal bowel sounds, soft Rectal exam: PRESENT: deferred Extremities exam: ABSENT: joint swelling, pedal edema Musculoskeletal exam: ABSENT: deformity, dislocation Neurological exam: PRESENT: alert, oriented to person, oriented to place, lisa ented to time, oriented to situation, CN II-XII grossly intact. ABSENT: motor sensory deficit Psychiatric exam: PRESENT: appropriate affect, normal mood Skin exam: PRESENT: dry, intact, warm. ABSENT: jaundice, rash, urticaria Results Laboratory Results: 04/03/19 21:05 04/03/19 21:05 04/03/19 04/03/19 21:05 21:05 WBC 12.6 H RBC 3.69 L Hgb 10.7 L Hct 32.5 L MCV 88 MCH 29.1 MCHC 33.0 RDW 16.0 H Plt Count 184 Seg Neutrophils % 81.0 H Sodium 138.0 Potassium 5.5 H Chloride 101 Carbon Dioxide 29 Anion Gap 8 BUN 33 H Creatinine 1.68 H Est GFR ( Amer) 37 L Glucose 184 H Calcium 9.4 Total Bilirubin 0.5 AST 20 Alkaline Phosphatase 82 Total Protein 7.5 Albumin 3.9 Lipase 206.0 04/03/19 04/04/19 21:05 00:25 Troponin I < 0.012 < 0.012 NT-Pro-B Natriuret Pep 3310 H Impressions: Chest X-Ray 04/03/19 20:52 IMPRESSION: No acute cardiopulmonary process copyright 2010 [employer]- All Rights Reserved Assessment and Plan - Diagnosis (1) Chest pain Qualifiers: Chest pain type: unspecified Qualified Code(s): R07.9 - Chest pain, unspecified Is this a current diagnosis for this admission?: Yes (2) COPD with acute bronchitis Is this a current diagnosis for this admission?: Yes (3) Coronary artery disease Qualifiers: Coronary Disease-Associated Artery/Lesion type: [place] artery Is this a current diagnosis for this admission?: Yes (4) Diabetes mellitus type 2 in nonobese Is this a current diagnosis for this admission?: Yes (5) Hyperlipidemia Qualifiers: Hyperlipidemia type: unspecified Qualified Code(s): E78.5 - Hyperlipidemia, unspecified Is this a current diagnosis for this admission?: Yes (6) USP current use of anticoagulant therapy Is this a current diagnosis for this admission?: Yes (7) Chronic atrial fibrillation Is this a current diagnosis for this admission?: Yes (8) Chronic systolic (congestive) heart failure Is this a current diagnosis for this admission?: Yes - Plan Summary Summary: Patient is admitted to observation status on the medical floor using a telemetry bed where she will receive routine supportive and symptomatic cares. Serial cardiac enzymes will be obtained and EKGs will be repeated as needed. Patient will be treated with a routine pulmonary toilet and started on Levaquin for her acute bronchitis. She will use morphine sulfate 2 to 4 mg IV every 2 hours on an as needed basis for control of pain. She may use Ativan 1 mg IV every 4 hours as needed anxiety or restlessness. She will be treated with Phenergan 12.5 mg IV every 4 hours as needed nausea or vomiting. She will receive a short course of IV fluids. Smoking cessation is advised and counseled briefly at the bedside and nicotine replacement patches available for the patient's use as needed. Before meals and at bedtime Accu-Cheks will be performed with sliding scale insulin used for hyperglycemia and a hypoglycemic protocol in place. - Time Time Spent with patient: 15-24 minutes Smoking Cessation Education: 3 to 10 minutes Medications reviewed and adjusted accordingly: Yes Anticipated discharge: Home Within: within 36 hours - Inpatient Certification Based on my medical assessment, after consideration of the patient's comorbidities, presenting symptoms, or acuity I expect that the services needed warrant INPATIENT care.: No I certify that my determination is in accordance with my understanding of Medicare's requirements for reasonable and necessary INPATIENT services [42 CFR 412.3e].: No Medical Necessity: Significant Comorbidiites Make Outpatient Treatment Too Risky, Need For Continuous Telemetry Monitoring, Need for Nebulizer Therapy and Monitoring of Response
[2019-04-04] MEDS ORDERED: HEPARIN SOD (PORCINE) 5,000 UNIT/ML 1 ML VIAL SUBCUT SCH (06:00)
[2019-04-04 07:45] LABS: CREATINE KINASE MB 0.58 ng/mL (<4.55)
[2019-04-04 07:56] LABS: TROPONIN I < 0.012 ng/mL
[2019-04-04] MEDS: INSULIN REG, HUMAN 100 UNIT/ML 3 ML VIAL (PYX) SUBCUT SCH ×4 (08:00→21:55)
[2019-04-04] MEDS: IPRATROPIUM BROMIDE 0.02% NEB 0.5 MG/2.5 ML AMPUL NEB SCH ×2 (08:59→16:24)
[2019-04-04] MEDS: ACETYLCYSTEINE 20% SOLN 800 MG/4 ML VIAL.NEB NEB SCH ×2 (08:59→20:05)
[2019-04-04] MEDS: LEVALBUTEROL HCL NEB 1.25 MG/3 ML AMPUL NEB SCH ×2 (08:59→16:24)
--- NOTE | 2019-04-04 10:38 | EKG REPORT ---
SEVERITY:- ABNORMAL ECG - ATRIAL FIBRILLATION, V-RATE 66-106 : Confirmed by: Samuel Fox MD 04-Apr-2019 10:37:52
[2019-04-04] MEDS: APIXABAN 5 MG TABLET PO SCH ×2 (11:14→17:50)
[2019-04-04] MEDS: TORSEMIDE 20 MG TABLET PO SCH (11:14)
[2019-04-04] MEDS: METOPROLOL SUCCINATE 50 MG TAB.SR.24H PO SCH (11:15)
[2019-04-04] MEDS: DIGOXIN 0.25 MG TABLET PO SCH (11:15)
[2019-04-04] MEDS: DOCUSATE SODIUM 100 MG CAPSULE PO SCH ×2 (11:19→17:48)
[2019-04-04] MEDS: GLIMEPIRIDE 1 MG TABLET PO SCH (11:21)
[2019-04-04] MEDS: SACUBITRIL/VALSARTAN 24 MG/26 MG TABLET PO SCH ×2 (11:21→17:51)
[2019-04-04] MEDS: PANTOPRAZOLE SODIUM 40 MG VIAL IV SCH ×2 (11:22→21:55)
[2019-04-04 15:08] LABS: CREATINE KINASE MB 0.49 ng/mL (<4.55)
[2019-04-04 15:17] LABS: TROPONIN I < 0.012 ng/mL
[2019-04-04] MEDS: ACETAMINOPHEN 325 MG TABLET PO PRN (17:51)
[2019-04-05] MEDS: ACETAMINOPHEN 325 MG TABLET PO PRN (03:02)
[2019-04-05 05:27] LABS: HEMATOCRIT 28.3 % (36.0-47.0); HEMOGLOBIN 9.6 g/dL (12.0-15.5); MEAN CORPUSCULAR VOLUME 88 fl (80-97); PLATELET COUNT 155 10^3/uL (150-450); RED BLOOD COUNT 3.22 10^6/uL (3.72-5.28); RED CELL DISTRIBUTION WIDTH 15.3 % (11.5-14.0); WHITE BLOOD COUNT 11.9 10^3/uL (4.0-10.5)
[2019-04-05 05:59] LABS: ANION GAP 10 (5-19); BLOOD UREA NITROGEN 38 mg/dL (7-20); CALCIUM 8.4 mg/dL (8.4-10.2); CARBON DIOXIDE 27 mmol/L (22-30); CHLORIDE 101 mmol/L (98-107); GLUCOSE 166 mg/dL (75-110); POTASSIUM 4.4 mmol/L (3.6-5.0)
[2019-04-05] MEDS: ACETYLCYSTEINE 20% SOLN 800 MG/4 ML VIAL.NEB NEB SCH (07:45)
[2019-04-05] MEDS: IPRATROPIUM BROMIDE 0.02% NEB 0.5 MG/2.5 ML AMPUL NEB SCH ×2 (07:46)
[2019-04-05] MEDS: LEVALBUTEROL HCL NEB 1.25 MG/3 ML AMPUL NEB SCH ×2 (07:46)
[2019-04-05] MEDS: INSULIN REG, HUMAN 100 UNIT/ML 3 ML VIAL (PYX) SUBCUT SCH ×3 (08:21→17:45)
[2019-04-05] MEDS: GLIMEPIRIDE 1 MG TABLET PO SCH (08:21)
[2019-04-05] MEDS: APIXABAN 5 MG TABLET PO SCH ×2 (10:53→17:47)
[2019-04-05] MEDS: METOPROLOL SUCCINATE 50 MG TAB.SR.24H PO SCH (10:53)
[2019-04-05] MEDS: TORSEMIDE 20 MG TABLET PO SCH (10:54)
[2019-04-05] MEDS: DIGOXIN 0.25 MG TABLET PO SCH (10:55)
[2019-04-05] MEDS: PANTOPRAZOLE SODIUM 40 MG VIAL IV SCH (10:59)
[2019-04-05] MEDS: DOCUSATE SODIUM 100 MG CAPSULE PO SCH ×2 (10:59→17:48)
[2019-04-05] MEDS: SACUBITRIL/VALSARTAN 24 MG/26 MG TABLET PO SCH ×2 (11:02→17:47)
[2019-04-05 14:14] VITALS: BP 140/56
--- NOTE | 2019-04-06 18:59 | PDOC DISCHARGE SUMMARY ---
Impression - Admit/DC Date/PCP Admission Date/Primary Care Provider: 04/04/19 02:13 KACI NINA MD Discharge Date: 04/05/19 - Assessment Summary: Patient is admitted to observation status on the medical floor using a telemetry bed where she will receive routine supportive and symptomatic cares. Serial cardiac enzymes will be obtained and EKGs will be repeated as needed. Patient will be treated with a routine pulmonary toilet and started on Levaquin for her acute bronchitis. She will use morphine sulfate 2 to 4 mg IV every 2 hours on an as needed basis for control of pain. She may use Ativan 1 mg IV every 4 hours as needed anxiety or restlessness. She will be treated with Phenergan 12.5 mg IV every 4 hours as needed nausea or vomiting. She will receive a short course of IV fluids. Smoking cessation is advised and counseled briefly at the bedside and nicotine replacement patches available for the patient's use as needed. Before meals and at bedtime Accu-Cheks will be performed with sliding scale insulin used for hyperglycemia and a hypoglycemic protocol in place. 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 She will stay on her Eliquis and Lasix - Additional Information Resuscitation Status: Full Code Discharge Diet: Cardiac, Diabetic Discharge Activity: Balance Activity w/Rest Referrals: KACI NINA MD [Primary Care Provider] - 04/13/19 10:15 am Prescriptions: Torsemide [Demadex 20 mg Tablet] 20 mg PO DAILY 30 Days #30 tablet Apixaban [Eliquis 5 mg Tablet] 5 mg PO BID 30 Days #60 tablet Sacubitril/Valsartan [Entresto 24 mg/26 mg Tablet] 1 tab PO BID 30 Days #60 tablet Levofloxacin [Levaquin 500 mg Tablet] 500 mg PO DAILY 7 Days #7 tablet Melatonin [Melatonin 5 mg Tablet] 5 mg PO HSP PRN 30 Days #30 tablet PRN Reason: Nicotine [Nicoderm 21 mg/24 Hr Transderm Patch] 1 each TD DAILYP PRN 30 Days #30 patch.[id number] PRN Reason: Home Medications: Digoxin [Lanoxin 0.25 mg Tablet] 0.25 mg PO QAM 04/04/19 Glimepiride 2 mg PO BID 04/04/19 Metoprolol Succinate [[place] Sprinkle] 50 mg PO DAILY 04/04/19 Apixaban [Eliquis 5 mg Tablet] 5 mg PO BID 30 Days #60 tablet 04/05/19 Digoxin [Lanoxin 0.25 mg Tablet] 0.25 mg PO DAILY tablet 04/05/19 Levofloxacin [Levaquin 500 mg Tablet] 500 mg PO DAILY 7 Days #7 tablet 04/05/19 Melatonin [Melatonin 5 mg Tablet] 5 mg PO HSP PRN 30 Days #30 tablet 04/05/19 Nicotine [Nicoderm 21 mg/24 Hr Transderm Patch] 1 each TD DAILYP PRN 30 Days #30 patch.[id number] 04/05/19 Sacubitril/Valsartan [Entresto 24 mg/26 mg Tablet] 1 tab PO BID 30 Days #60 tablet 04/05/19 Torsemide [Demadex 20 mg Tablet] 20 mg PO DAILY 30 Days #30 tablet 04/05/19 History of Present Illiness History of Present Illness: CHRISTINA VIVEROS is a 69 year old female Physical Exam Vital Signs: Temp Pulse Resp BP Pulse Ox 97.6 F 98 17 140/56 H 99 04/05/19 14:43 04/05/19 14:43 04/05/19 14:43 04/05/19 14:43 04/05/19 14:43 Intake & Output 04/05/19 04/06/19 04/07/19 06:59 06:59 06:59 Intake Total 2120 Balance 2120 Weight 79.6 kg Results Laboratory Results: WBC 11.9 10^3/uL (4.0-10.5) H 04/05/19 05:14 RBC 3.22 10^6/uL (3.72-5.28) L 04/05/19 05:14 Hgb 9.6 g/dL (12.0-15.5) L 04/05/19 05:14 Hct 28.3 % (36.0-47.0) L 04/05/19 05:14 MCV 88 fl (80-97) 04/05/19 05:14 MCH 30.0 pg (27.0-33.4) 04/05/19 05:14 MCHC 34.0 g/dL (32.0-36.0) 04/05/19 05:14 RDW 15.3 % (11.5-14.0) H 04/05/19 05:14 Plt Count 155 10^3/uL (150-450) 04/05/19 05:14 Lymph % (Auto) 13.4 % (13-45) 04/03/19 21:05 [place] % (Auto) 3.2 % (3-13) 04/03/19 21:05 Eos % (Auto) 1.5 % (0-6) 04/03/19 21:05 Baso % (Auto) 0.9 % (0-2) 04/03/19 21:05 Absolute Neuts (auto) 10.2 10^3/uL (1.7-8.2) H 04/03/19 21:05 Absolute Lymphs (auto) 1.7 10^3/uL (0.5-4.7) 04/03/19 21:05 Absolute Monos (auto) 0.4 10^3/uL (0.1-1.4) 04/03/19 21:05 Absolute Eos (auto) 0.2 10^3/uL (0.0-0.6) 04/03/19 21:05 Absolute Basos (auto) 0.1 10^3/uL (0.0-0.2) 04/03/19 21:05 Seg Neutrophils % 81.0 % (42-78) H 04/03/19 21:05 Sodium 137.9 mmol/L (137-145) 04/05/19 05:14 Potassium 4.4 mmol/L (3.6-5.0) 04/05/19 05:14 Chloride 101 mmol/L (98-107) 04/05/19 05:14 Carbon Dioxide 27 mmol/L (22-30) 04/05/19 05:14 Anion Gap 10 (5-19) 04/05/19 05:14 BUN 38 mg/dL (7-20) H 04/05/19 05:14 Creatinine 1.81 mg/dL (0.52-1.25) H 04/05/19 05:14 Est GFR ( Amer) 34 (>60) L 04/05/19 05:14 Est GFR (MDRD) Non-Af 28 (>60) L 04/05/19 05:14 Glucose 166 mg/dL (75-110) H 04/05/19 05:14 POC Glucose 170 mg/dL (70-110) H 04/05/19 16:26 Calcium 8.4 mg/dL (8.4-10.2) 04/05/19 05:14 Magnesium 1.9 mg/dL (1.6-2.3) 04/05/19 05:14 Total Bilirubin 0.5 mg/dL (0.2-1.3) 04/03/19 21:05 Direct Bilirubin 0.0 mg/dL (0.0-0.4) 04/03/19 21:05 Neonat Total Bilirubin Not Reportable 04/03/19 21:05 Neonat Direct Bilirubin Not Reportable 04/03/19 21:05 Neonat Indirect Bili Not Reportable 04/03/19 21:05 AST 20 U/L (14-36) 04/03/19 21:05 ALT 11 U/L (<35) 04/03/19 21:05 Alkaline Phosphatase 82 U/L (38-126) 04/03/19 21:05 Creatine Kinase 44 U/L (30-135) 04/04/19 14:00 CK-MB (CK-2) 0.49 ng/mL (<4.55) 04/04/19 14:00 Troponin I < 0.012 ng/mL 04/04/19 14:00 NT-Pro-B Natriuret Pep 3310 pg/mL (<125) H 04/03/19 21:05 Total Protein 7.5 g/dL (6.3-8.2) 04/03/19 21:05 Albumin 3.9 g/dL (3.5-5.0) 04/03/19 21:05 Lipase 206.0 U/L (23-300) 04/03/19 21:05 04/03/19 04/04/19 04/04/19 21:05 00:25 00:25 CK-MB (CK-2) 0.85 Troponin I < 0.012 < 0.012 Cancelled NT-Pro-B Natriuret Pep 3310 H 04/04/19 04/04/19 06:43 14:00 CK-MB (CK-2) 0.58 0.49 Troponin I < 0.012 < 0.012 NT-Pro-B Natriuret Pep Impressions: Chest X-Ray 04/03/19 20:52 IMPRESSION: No acute cardiopulmonary process copyright 2011 [employer]- All Rights Reserved Stroke Is this a Stroke Patient?: No Acute Heart Failure - Is this a Heart Failure Patient?: No
== END 2019-04-05 17:50 | disposition home or self-care (01) ==
LOC: ER 20:10 → EH 04-04 02:13 → 5 04-04 04:04
PROVIDERS: ADMIT Emergency Medicine; ATTEND Emergency Medicine
DX: R07.9 Chest pain, unspecified (principal); I48.20 Chronic atrial fibrillation, unspecified; I25.10 Atherosclerotic heart disease of native coronary artery without angina pectoris; E11.9 Type 2 diabetes mellitus without complications; J44.0 Chronic obstructive pulmonary disease with (acute) lower respiratory infection; J20.9 Acute bronchitis, unspecified; I11.0 Hypertensive heart disease with heart failure; I50.22 Chronic systolic (congestive) heart failure; R11.2 Nausea with vomiting, unspecified; F17.200 Nicotine dependence, unspecified, uncomplicated; E78.5 Hyperlipidemia, unspecified; R42 Dizziness and giddiness; I25.2 Old myocardial infarction; Z79.01 Long term (current) use of anticoagulants; Z79.899 Other long term (current) drug therapy; Z86.73 Personal history of transient ischemic attack (TIA), and cerebral infarction without residual deficits; Z85.42 Personal history of malignant neoplasm of other parts of uterus; Z90.49 Acquired absence of other specified parts of digestive tract; Z95.5 Presence of coronary angioplasty implant and graft; Z82.49 Family history of ischemic heart disease and other diseases of the circulatory system; Z79.82 Long term (current) use of aspirin; Z87.442 Personal history of urinary calculi
CPT/HCPCS: 93005; 94640 ×4; 99285; 36415 ×3; 82553; 82962 ×2; 82550; 83690; 83735; 85025; 85027; 80048; 80053; 84484 ×2; 83880; 71046; 93010; G0378 ×3; A9270 ×22; C9113 ×2; J3490 ×6; J7120; J1815; J7614; J7620